=== PATIENT | female | born 1960 | race Caucasian/White ===

== ENCOUNTER 2020-02-10 08:43 | Outpatient (REF) | payer OTHER, SELFPAY ==
[2020-02-10 11:59] LABS: Blood Urea Nitrogen 12 mg/dL (9-16); Cholesterol 209 mg/dL; Estimated Glomerular Filt Rate > 60; HDL Cholesterol 52 mg/dL; LDL Cholesterol Calculated 142 mg/dl; Triglycerides 76 mg/dL
== END 2020-02-10 08:44 | disposition home or self-care (01) ==
LOC: HO.HMGCLDS 08:43
PROVIDERS: PCP Internal Medicine; Visit Provider Internal Medicine
DX: E78.2 Mixed hyperlipidemia (principal); Z82.49 Family history of ischemic heart disease and other diseases of the circulatory system
CPT/HCPCS: 80061; 82565; 84520

== ENCOUNTER 2020-05-31 08:14 | Outpatient (REF) | payer OTHER, SELFPAY ==
[2020-05-31 12:04] LABS: Alanine Aminotransferase 30 U/L (0-31); Albumin Level 4.2 g/dL (3.5-5.0); Alkaline Phosphatase 58 U/L (39-117); Anion Gap 13 (12-20); Aspartate Amino Transferase 24 U/L (5-31); Bilirubin Total 0.6 mg/dL (0.0-1.0); Blood Urea Nitrogen 20 mg/dL (9-16); Calcium 8.7 mg/dL (8.4-10.2); Carbon Dioxide 27 mmol/L (22-29); Chloride 106 mmol/L (96-108); Cholesterol 205 mg/dL; Estimated Glomerular Filt Rate > 60; Glucose Fasting 90 mg/dL (60-99); HDL Cholesterol 62 mg/dL; LDL Cholesterol Calculated 132 mg/dl; Potassium 4.6 mmol/L (3.3-5.1); Sodium 141 mmol/L (135-145); Total Protein 6.6 g/dL (6.5-8.0); Triglycerides 57 mg/dL
== END 2020-05-31 08:15 | disposition home or self-care (01) ==
LOC: HO.HMGCLDS 08:14
PROVIDERS: PCP Internal Medicine; Visit Provider Internal Medicine
DX: E78.5 Hyperlipidemia, unspecified (principal); I72.9 Aneurysm of unspecified site
CPT/HCPCS: 36415; 80053; 80061

== ENCOUNTER 2020-06-09 14:15 | Outpatient (REF) | payer OTHER, SELFPAY ==
--- NOTE | ~2020-06-09 | US_ITS ---
EXAMINATION: US THYROID CLINICAL INFORMATION: Autoimmune thyroiditis. COMPARISON: None TECHNIQUE: Linear transducer grayscale and color Doppler examination with attention to the region of the thyroid. FINDINGS: SIZE: Measurements of the thyroid lobes and nodules are given in sagittal, anteroposterior and transverse dimensions respectively. Right Thyroid Lobe: 5.2 x 2.5 x 2.1 cm, volume 14.3 mL. Parenchyma: The gland echotexture is heterogeneous. Thyroid vascularity is increased. Left Thyroid Lobe: 5.3 x 1.9 x 1.4 cm, volume 7.4 mL. Parenchyma: The gland echotexture is heterogeneous. Thyroid vascularity is increased. Isthmus: 0.5 cm in maximum AP dimension. Estimated total number of nodules greater than or equal to 1 cm: 4. Educational Psychologist nodules are described as follows: 1. Location: Right mid. Size: 2.7 x 1.4 x 2.2 cm, volume of 4.3 mL. Nodule characteristics: Composition: Solid (2). Echogenicity: Hyperechoic (1). Shape: Not taller than wide (0). Margins: Smooth (0). Echogenic Foci: None (0). ACR TI-RADS total points: 3 ACR TI-RADS category: 3 2. Location: Right inferior. Size: 1.2 x 1.0 x 1.0 cm, volume 0.6 mL. Nodule characteristics: Composition: Solid (2). Echogenicity: Hyperechoic (1). Shape: Not taller than wide (0). Margins: Ill-defined (0). Echogenic Foci: None (0). ACR TI-RADS total points: 3 ACR TI-RADS category: 3 3. Location: Left mid. Size: 1.7 x 1.1 x 1.4 cm, volume 1.4 mL. Nodule characteristics: Composition: Solid/almost completely solid (2). Echogenicity: Hyperechoic (1). Shape: Not taller than wide (0). Margins: Smooth (0). Echogenic Foci: None (0). ACR TI-RADS total points: 3 ACR TI-RADS category: 3 4. Location: Left mid/inferior. Size: 0.9 x 0.8 x 0.8 cm, volume 0.3 mL. Nodule characteristics: Composition: Solid (2). Echogenicity: Hyperechoic (1). Shape: Not taller than wide (0). Margins: Smooth (0). Echogenic Foci: Peripheral calcifications (2). ACR TI-RADS total points: 5 ACR TI-RADS category: 4 5. Location: Left inferior. Size: 1.1 x 0.7 x 1.2 cm, volume 0.5 mL. Nodule characteristics: Composition: Solid (2). Echogenicity: Cannot be determined (1). Shape: Not taller than wide (0). Margins: Ill-defined (0). Echogenic Foci: None (0). ACR TI-RADS total points: 3 ACR TI-RADS category: 3 NODES: No lymphadenopathy is seen in the tissue surrounding the thyroid gland. US/US thyroid IMPRESSION: Multinodular thyroid gland with a dominant 2.7 cm nodule in the right lobe. Multiple TR3 nodules are present, the largest of which measures 2.7 cm and was likely previously biopsied, per report. Continued follow-up ultrasound is advised per the recommendations below. A 0.9 cm TR4 nodule in the left lobe is not follow-up recommendation based on size. ACR TI-RADS RECOMMENDATION REFERENCE: * TR3 (3 points): FNA if more than or equal to 2.5 cm in maximum dimension, followup ultrasound in 1, 3 and 5 years if 1.5 to 2.4 cm in maximum dimension. * TR4 (4-6 points): FNA if more than or equal to 1.5 cm in maximum dimension, followup ultrasound in 1, 2, 3 and 5 years if 1 to 1.4 cm in maximum dimension. * TR3, TR4 or TR5 nodules that are below the size threshold for follow up receive no follow up.
== END 2020-06-09 14:16 | disposition home or self-care (01) ==
LOC: HO.US 14:15
PROVIDERS: Visit Provider Internal Medicine
DX: E06.3 Autoimmune thyroiditis (principal); I72.9 Aneurysm of unspecified site; E78.5 Hyperlipidemia, unspecified
CPT/HCPCS: 76536

== ENCOUNTER 2020-06-24 07:59 | Outpatient (REF) | payer OTHER, SELFPAY ==
--- NOTE | ~2020-06-24 | MM_ITS ---
EXAMINATION: BONE DENSITOMETRY CLINICAL INDICATION: Encounter for general adult medical examination. Screening for osteoporosis. COMPARISON: Baseline BD dated 03/11/2018. TECHNIQUE: Using a [employer] DXA System (software version: 13.1) manufactured by [employer], dual-energy x-ray absorptiometry was performed of the lumbar spine and left hip. The images are of good technical quality. Summary results are attached. FINDINGS: AP SPINE L1-L4: Current: BMD 0.970 g/cm2, Z-score -0.9, T-score -1.8, osteopenia, 3.5% increase from baseline (<5% change is not significant). Baseline: BMD 0.937 g/cm2. LEFT FEMUR, NECK: Current: BMD 0.821 g/cm2, Z-score -0.5, T-score -1.6, osteopenia. Baseline: BMD 0.834 g/cm2. LEFT FEMUR, TOTAL: Current: BMD 0.865 g/cm2, Z-score -0.4, T-score -1.1, osteopenia, 1.8% decrease from baseline (<5% change is not significant). Baseline: BMD 0.881 g/cm2. IDENTIFIED RISK FACTORS: Menopause. HISTORY OF FRACTURE: None listed. MEDICATIONS: Vitamin D. MM/XR DEXA axial skeleton IMPRESSION: 1. DIAGNOSIS: Osteopenia based on the lowest T-score value of -1.8 in the lumbar spine applying World Health Organization criteria. 2. 10-YEAR FRACTURE RISK PREDICTION, FRAX: Major osteoporotic fracture (clinical spine, forearm, hip or shoulder) 8.6%. Hip fracture 0.8%. 3. Treatment Recommendations: NOF guidelines recommend consideration for treatment in postmenopausal women and men age 50 and older presenting with the following: -A hip or vertebral (clinical or morphometric) fracture. -T-score less than or equal to -2.5 at the femoral neck or spine after appropriate evaluation to exclude secondary causes. -Low bone mass at the hip or spine and a 10-year fracture probability by FRAX of greater than or equal to 3% for hip fracture or greater than or equal to 20% for major osteoporotic fracture based on the [place] adapted WHO algorithm. 4. Other Recommendations: All treatment decisions require clinical judgment and consideration of individual patient factors, including patient preferences, comorbidities, previous drug use, risk factors not captured in the FRAX model (e.g. frailty, falls, vitamin D deficiency, increased bone turnover, interval significant decline in bone density) and possible under or overestimation of fracture risk by FRAX. Additional medical evaluation for secondary cause of low bone mineral density may be appropriate. FUTURE SCAN RECOMMENDATION: People with diagnosed cases of osteoporosis or at high risk for fracture should have regular bone mineral density tests. For patients eligible for Medicare, routine testing is allowed once every 2 years. The testing frequency can be increased to one year for patients who have rapidly progressing disease, those who are receiving or discontinuing medical therapy to restore bone mass, or have additional risk factors.
== END 2020-06-24 08:00 | disposition home or self-care (01) ==
LOC: HO.MAMMO 07:59
PROVIDERS: Visit Provider Internal Medicine
DX: Z13.820 Encounter for screening for osteoporosis (principal); M85.80 Other specified disorders of bone density and structure, unspecified site; Z78.0 Asymptomatic menopausal state; Z79.899 Other long term (current) drug therapy
CPT/HCPCS: 77080

== ENCOUNTER 2020-07-04 08:19 | Outpatient (REF) | payer OTHER, SELFPAY ==
[2020-07-04 12:19] LABS: Alanine Aminotransferase 20 U/L (0-31); Albumin Level 4.1 g/dL (3.5-5.0); Alkaline Phosphatase 50 U/L (39-117); Anion Gap 13 (12-20); Aspartate Amino Transferase 19 U/L (5-31); Bilirubin Total 0.4 mg/dL (0.0-1.0); Blood Urea Nitrogen 15 mg/dL (9-16); Calcium 8.7 mg/dL (8.4-10.2); Carbon Dioxide 25 mmol/L (22-29); Chloride 110 mmol/L (96-108); Cholesterol 169 mg/dL; Estimated Glomerular Filt Rate > 60; Glucose Fasting 94 mg/dL (60-99); HDL Cholesterol 66 mg/dL; LDL Cholesterol Calculated 94 mg/dl; Sodium 144 mmol/L (135-145); Total Protein 6.5 g/dL (6.5-8.0); Triglycerides 49 mg/dL
[2020-07-04 12:20] LABS: TSH reflex Free T4 0.95 uIU/mL (0.32-4.0); Vitamin D 25-OH Total 41.2 ng/mL (>30)
== END 2020-07-04 08:20 | disposition home or self-care (01) ==
LOC: HO.HMGCLDS 08:19
PROVIDERS: PCP Internal Medicine; Visit Provider Internal Medicine
DX: Z00.00 Encounter for general adult medical examination without abnormal findings (principal); E78.5 Hyperlipidemia, unspecified; E06.3 Autoimmune thyroiditis
CPT/HCPCS: 36415; 80053; 80061; 82306; 84443

== ENCOUNTER 2020-11-30 08:44 | Outpatient (REF) | payer OTHER, SELFPAY ==
[2020-11-30 09:44] LABS: Alanine Aminotransferase 30 U/L (0-31); Albumin Level 4.4 g/dL (3.5-5.0); Alkaline Phosphatase 51 U/L (39-117); Anion Gap 10 (12-20); Aspartate Amino Transferase 26 U/L (5-31); Bilirubin Total 0.7 mg/dL (0.0-1.0); Blood Urea Nitrogen 13 mg/dL (9-16); Calcium 9.2 mg/dL (8.4-10.2); Carbon Dioxide 26 mmol/L (22-29); Chloride 106 mmol/L (96-108); Cholesterol 191 mg/dL; Estimated Glomerular Filt Rate > 60; Glucose Fasting 101 mg/dL (60-99); HDL Cholesterol 69 mg/dL; LDL Cholesterol Calculated 112 mg/dl; Potassium 4.4 mmol/L (3.3-5.1); Sodium 138 mmol/L (135-145); Total Protein 6.7 g/dL (6.5-8.0); Triglycerides 51 mg/dL
== END 2020-11-30 08:45 | disposition home or self-care (01) ==
LOC: HO.LAB 08:44
PROVIDERS: PCP Internal Medicine; Visit Provider Internal Medicine
DX: Z00.00 Encounter for general adult medical examination without abnormal findings (principal); M85.80 Other specified disorders of bone density and structure, unspecified site; E78.5 Hyperlipidemia, unspecified
CPT/HCPCS: 36415; 80053; 80061

== ENCOUNTER 2021-06-14 08:26 | Outpatient (REF) | payer OTHER, SELFPAY ==
[2021-06-14 11:58] LABS: Hemoglobin 12.7 g/dl (12.0-16.0); Mean Corpuscular HGB Conc 32.6 g/dl (31.0-35.0); Mean Corpuscular Hemoglobin 31.3 pg (27.0-33.0); Mean Corpuscular Volume 96.1 fL (80.0-98.0); Mean Platelet Volume 9.3 fL (9.4-12.3); Platelet Count 243 X10*3/uL (160-400); Red Blood Count 4.06 X10*6/uL (4.20-5.50); Red Cell Distribution Width 12.2 % (11.0-16.0); White Blood Count 3.7 X10*3/uL (4.8-10.8)
[2021-06-14 12:21] LABS: TSH reflex Free T4 1.46 uIU/mL (0.32-4.0); Vitamin D 25-OH Total 50.7 ng/mL (>30)
[2021-06-14 12:23] LABS: Alanine Aminotransferase 98 U/L (0-31); Albumin Level 4.3 g/dL (3.5-5.0); Alkaline Phosphatase 83 U/L (39-117); Anion Gap 11 (12-20); Aspartate Amino Transferase 89 U/L (5-31); Bilirubin Total 0.4 mg/dL (0.0-1.0); Blood Urea Nitrogen 12 mg/dL (9-16); Calcium 9.2 mg/dL (8.4-10.2); Carbon Dioxide 26 mmol/L (22-29); Chloride 105 mmol/L (96-108); Cholesterol 183 mg/dL; Estimated Glomerular Filt Rate > 60; Glucose Fasting 103 mg/dL (60-99); HDL Cholesterol 56 mg/dL; LDL Cholesterol Calculated 114 mg/dl; Potassium 4.2 mmol/L (3.3-5.1); Sodium 138 mmol/L (135-145); Total Protein 6.8 g/dL (6.5-8.0); Triglycerides 69 mg/dL
== END 2021-06-14 08:27 | disposition home or self-care (01) ==
LOC: HO.HMGCLDS 08:26
PROVIDERS: Visit Provider Internal Medicine
DX: Z00.00 Encounter for general adult medical examination without abnormal findings (principal); E78.5 Hyperlipidemia, unspecified; M85.80 Other specified disorders of bone density and structure, unspecified site
CPT/HCPCS: 36415; 80053; 80061; 82306; 84443; 85027

== ENCOUNTER 2021-07-31 08:46 | Outpatient (REF) | payer OTHER, SELFPAY ==
--- NOTE | ~2021-07-31 | US_ITS ---
EXAMINATION: US THYROID CLINICAL INFORMATION: Nontoxic multinodular goiter. COMPARISON: Thyroid ultrasound 06/09/2020. TECHNIQUE: Linear transducer grayscale and color Doppler examination with attention to the region of the thyroid. FINDINGS: SIZE: Measurements of the thyroid lobes and nodules are given in sagittal, anteroposterior and transverse dimensions respectively. Right Thyroid Lobe: 6.1 x 2.5 x 2.2 cm, volume 17.5 mL. Previously 5.2 x 2.5 x 2.1 cm, volume 14.3 mL. Parenchyma: The gland echotexture is heterogeneous. Thyroid vascularity is increased. Left Thyroid Lobe: 5.5 x 2.1 x 1.7 cm, volume 10.3 mL. Previously 5.3 x 1.9 x 1.4 cm, volume 7.4 mL. Parenchyma: The gland echotexture is heterogeneous. Thyroid vascularity is increased. Isthmus: 0.5 cm in maximum AP dimension. Previously 0.5 cm. Estimated total number of nodules greater than or equal to 1 cm: 5. Dental Practitioner nodules are described as follows: 1. Location: Left upper pole. Size: 1.8 x 1.3 x 1.4 cm, volume 1.70 mL. Previously: 1.7 x 1.1 x 1.4 cm, volume 1.38 mL. Nodule characteristics: Composition: Solid (2). Echogenicity: Isoechoic (1). Shape: Not taller than wide (0). Margins: Extrathyroidal extension (3). Echogenic Foci: None (0). ACR TI-RADS total points: 6 Previous: 3 ACR TI-RADS category: 4 Previous: 3 Significant change in size (>/= 20% in 2 dimensions and minimal increase of 2 mm or 50% or greater increase in volume): Change in features: Change in ACR TI-RADS risk category: 2. Location: Left mid pole. Size: 1.0 x 0.9 x 1.0 cm, volume 0.45 mL. Previously: 0.9 x 0.8 x 0.8 cm, volume 0.28 mL. Nodule characteristics: Composition: Solid (2). Echogenicity: Isoechoic (1). Shape: Not taller than wide (0). Margins: Smooth (0). Echogenic Foci: Peripheral calcifications (2). ACR TI-RADS total points: 5 Previous: 5 ACR TI-RADS category: 4 Previous: 4 Significant change in size (>/= 20% in 2 dimensions and minimal increase of 2 mm or 50% or greater increase in volume): Change in features: Change in ACR TI-RADS risk category: 3. Location: Left lower pole. Size: 1.0 x 0.6 x 0.8 cm, volume 0.27 mL. Previously: 0.8 x 0.5 x 0.6 cm, volume 0.14 mL. Nodule characteristics: Composition: Mixed cystic and solid (1). Echogenicity: Cannot be determined (1). Shape: Not taller than wide (0). Margins: Smooth (0). Echogenic Foci: None (0). ACR TI-RADS total points: 2 ACR TI-RADS category: 2 4. Location: Right mid pole. Size: 2.7 x 1.5 x 2.4 cm, volume 4.95 mL. Previously: 2.7 x 1.4 x 2.2 cm, volume 4.33 mL. Nodule characteristics: Composition: Solid/almost completely solid (2). Echogenicity: Isoechoic (1). Shape: Not taller than wide (0). Margins: Smooth (0). Echogenic Foci: None (0). ACR TI-RADS total points: 3 Previous: 3 ACR TI-RADS category: 3 Previous: 3 Significant change in size (>/= 20% in 2 dimensions and minimal increase of 2 mm or 50% or greater increase in volume): Change in features: Change in ACR TI-RADS risk category: 5. Location: Right lower pole. Size: 1.1 x 1.2 x 0.8 cm, volume 0.5 mL. Previously: 1.2 x 1.0 x 1.0 cm, volume 0.6 mL. Nodule characteristics: Composition: Solid (2). Echogenicity: Cannot be determined (1). Shape: Taller than wide (3). Margins: Ill-defined (0). Echogenic Foci: None (0). ACR TI-RADS total points: 6 Previous: 3 ACR TI-RADS category: 4 Previous: 3 Significant change in size (>/= 20% in 2 dimensions and minimal increase of 2 mm or 50% or greater increase in volume): Change in features: Change in ACR TI-RADS risk category: The 1.1 x 0.7 x 1.2 cm nodule in the inferior left lobe on May 2020 exam is not definitely appreciated. NODES: No lymphadenopathy is seen in the tissue surrounding the thyroid gland. US/US thyroid IMPRESSION: Enlarged heterogeneous hypervascular thyroid gland. The 1 cm nodule in the inferior left lobe is not definitely appreciated. Otherwise bilateral thyroid nodules are stable. ACR TI-RADS RECOMMENDATION REFERENCE: Ultrasound-guided fine-needle aspiration, followup ultrasound, no further follow up. * TR1 (0 point) and TR 2 (2 points): No FNA or follow up * TR3 (3 points): FNA if more than or equal to 2.5 cm in maximum dimension, followup ultrasound in 1, 3 and 5 years if 1.5 to 2.4 cm in maximum dimension. * TR4 (4-6 points): FNA if more than or equal to 1.5 cm in maximum dimension, followup ultrasound in 1, 2, 3 and 5 years if 1 to 1.4 cm in maximum dimension. * TR5 (more than or equal to 7 points): FNA if more than or equal to 1 cm in maximum dimension, followup ultrasound every year for 5 years if 0.5 to 0.9 cm in maximum dimension. * TR3, TR4 or TR5 nodules that are below the size threshold for follow up receive no follow up.
== END 2021-07-31 08:47 | disposition home or self-care (01) ==
LOC: HO.US 08:46
PROVIDERS: PCP Internal Medicine; Visit Provider Internal Medicine
DX: E04.2 Nontoxic multinodular goiter (principal)
CPT/HCPCS: 76536

== ENCOUNTER 2021-08-23 07:48 | Outpatient (REF) | payer OTHER, SELFPAY ==
[2021-08-23 12:24] LABS: Alanine Aminotransferase 34 U/L (0-31); Albumin Level 4.5 g/dL (3.5-5.0); Alkaline Phosphatase 56 U/L (39-117); Aspartate Amino Transferase 28 U/L (5-31); Bilirubin Direct 0.2 mg/dL (0.0-0.5); Bilirubin Total 0.5 mg/dL (0.0-1.0)
== END 2021-08-23 07:49 | disposition home or self-care (01) ==
LOC: HO.HMGCLDS 07:48
PROVIDERS: Visit Provider Internal Medicine
DX: Z00.00 Encounter for general adult medical examination without abnormal findings (principal); R79.89 Other specified abnormal findings of blood chemistry; E78.5 Hyperlipidemia, unspecified
CPT/HCPCS: 36415; 80076

== ENCOUNTER 2022-06-20 08:37 | Outpatient (REF) | payer OTHER, SELFPAY ==
[2022-06-20 11:28] LABS: Appearance Urine Clear; Color Urine Yellow; Glucose Urine UA Negative (Negative); Leukocyte Esterase Urine Moderate (2+) (Negative); Nitrite Urine Negative (Negative); Specific Gravity - Urine <= 1.005 (1.005-1.025); UMIC TRIGGER UA YES; Urine Blood Negative (Negative); Urine Ketones Negative (Negative); Urine Protein Negative (Neg-Trace)
[2022-06-20 11:30] LABS: Hematocrit 38.3 % (37.0-47.0); Hemoglobin 12.4 g/dl (12.0-16.0); Mean Corpuscular HGB Conc 32.4 g/dl (31.0-35.0); Mean Corpuscular Volume 95.8 fL (80.0-98.0); Platelet Count 260 X10*3/uL (160-400); Red Cell Distribution Width 12.3 % (11.0-16.0); White Blood Count 5.1 X10*3/uL (4.8-10.8)
[2022-06-20 11:47] LABS: Bacteria Urine None Seen (None Seen); Hyaline Casts Urine 0-2 /LPF (0-2); RBC Urine 0-2 /HPF (0-2); Squamous Epithelial Cell Urine 0-2 /HPF (0-2); WBC Urine 0-5 /HPF (0-5)
[2022-06-20 12:15] LABS: Alanine Aminotransferase 35 U/L (0-31); Albumin Level 4.2 g/dL (3.5-5.0); Alkaline Phosphatase 52 U/L (39-117); Anion Gap 12 (12-20); Aspartate Amino Transferase 30 U/L (5-31); Bilirubin Total 0.6 mg/dL (0.0-1.0); Blood Urea Nitrogen 21 mg/dL (9-16); Calcium 9.1 mg/dL (8.4-10.2); Carbon Dioxide 25 mmol/L (22-29); Chloride 108 mmol/L (96-108); Cholesterol 192 mg/dL; Estimated Glomerular Filt Rate > 60; Glucose Fasting 94 mg/dL (60-99); HDL Cholesterol 60 mg/dL; LDL Cholesterol Calculated 121 mg/dl; Potassium 4.8 mmol/L (3.3-5.1); Sodium 140 mmol/L (135-145); Total Protein 6.6 g/dL (6.5-8.0); Triglycerides 56 mg/dL
[2022-06-20 12:17] LABS: TSH reflex Free T4 1.72 uIU/mL (0.32-4.0)
== END 2022-06-20 08:38 | disposition home or self-care (01) ==
LOC: HO.HMGCLDS 08:37
PROVIDERS: PCP Internal Medicine; Visit Provider Internal Medicine
DX: Z00.00 Encounter for general adult medical examination without abnormal findings (principal)
CPT/HCPCS: 36415; 80053; 80061; 81001; 84443; 85027

== ENCOUNTER 2023-06-26 08:03 | Outpatient (REF) | payer OTHER, SELFPAY ==
[2023-06-26 10:27] LABS: MANUAL DIFF FLAG NO
[2023-06-26 10:46] LABS: Basophils Absolute Auto 0.1 X10*3/uL (0.0-0.2); Basophils Percent Auto 1.3 % (0-2); Eosinophils Absolute Auto 0.3 X10*3/uL (0.0-0.4); Eosinophils Percent Auto 6.3 % (0-4); Hematocrit 35.1 % (37.0-47.0); Hemoglobin 11.5 g/dl (12.0-16.0); Lymphocytes Absolute Auto 1.4 X10*3/uL (1.2-4.9); Lymphocytes Percent Auto 35.4 % (20-40); Mean Corpuscular HGB Conc 32.8 g/dl (31.0-35.0); Mean Corpuscular Hemoglobin 31.3 pg (27.0-33.0); Mean Corpuscular Volume 95.4 fL (80.0-98.0); Mean Platelet Volume 9.3 fL (9.4-12.3); Monocytes Absolute Auto 0.4 X10*3/uL (0.1-1.2); Monocytes Percent Auto 10.1 % (2-11); Neutrophils Absolute Auto 1.9 x10*3/uL (2.0-8.3); Neutrophils Percent Auto 46.9 % (45-73); Platelet Count 228 X10*3/uL (160-400); Red Blood Count 3.68 X10*6/uL (4.20-5.50); Red Cell Distribution Width 13.4 % (11.0-16.0)
[2023-06-26 11:07] LABS: Alanine Aminotransferase 16 U/L (0-31); Albumin Level 4.1 g/dL (3.5-5.0); Alkaline Phosphatase 41 U/L (39-117); Anion Gap 13 (12-20); Aspartate Amino Transferase 20 U/L (5-31); Bilirubin Total 0.5 mg/dL (0.0-1.0); Blood Urea Nitrogen 20 mg/dL (9-16); Calcium 9.8 mg/dL (8.4-10.2); Carbon Dioxide 24 mmol/L (22-29); Chloride 105 mmol/L (96-108); Cholesterol 176 mg/dL (<200); Estimated Glomerular Filt Rate > 60; Glucose Fasting 97 mg/dL (60-99); HDL Cholesterol 67 mg/dL (>40); LDL Cholesterol Calculated 102 mg/dL (<100); Sodium 138 mmol/L (135-145); Total Protein 6.6 g/dL (6.5-8.0); Triglycerides 38 mg/dL (<150)
[2023-06-26 11:13] LABS: TSH reflex Free T4 1.81 uIU/mL (0.32-4.0); Vitamin D 25-OH Total 48.6 ng/mL (>30)
== END 2023-06-26 08:04 | disposition home or self-care (01) ==
LOC: HO.HMGCLDS 08:03
PROVIDERS: PCP Internal Medicine; Visit Provider Internal Medicine
DX: Z00.00 Encounter for general adult medical examination without abnormal findings (principal); E06.3 Autoimmune thyroiditis; E78.5 Hyperlipidemia, unspecified; I72.9 Aneurysm of unspecified site
CPT/HCPCS: 36415; 80053; 80061; 82306; 84443; 85025

== ENCOUNTER 2023-07-01 11:22 | Outpatient (AMB) | payer OTHER, SELFPAY ==
[2023-07-01 11:47] VITALS: BP 116/66; PULSE 77; O2SAT 98; BMI 29.3
--- NOTE | 2023-07-01 11:47 | MHC.PC.OV ---
Vital Signs 07/01/23 11:47 Height 5 ft 6.5 in Weight 184 lb BMI 29.3 BP 116/66 Blood Pressure Location Rt brachial Position Sitting Pulse 77 Pulse Source Pulse Oximeter Pulse Oximetry (%) 98 Oxygen Delivery Method Room Air Intake Visit Reasons: Annual PE Intake Note: Pt is here today for PE. Allergies No Known Allergies Allergy (Verified 07/01/23 11:50) Tobacco use date assessed: 07/01/23 Fall risk assessment: No Falls in past year Last assessed Fall Risk: 07/01/23 Dental Screening Dental Screen Date: 07/01/23 Did you have a dental visit in the last 12 months?: Yes Did you have a dental problem in the last 6 months where you did not have access to dental care?: No Was dental information given to patient?: Patient has dentist HPI Annual PE HPI Details Patient presents for physical PFSH Medical History Multinodular goiter Elevated LFTs Annual physical exam Aneurysm Hyperlipidemia Osteopenia Jr's thyroiditis Surgical History (Reviewed 07/01/23 @ 11:52 by Madeline Chance [facility] [place]) H/O colonoscopy No pertinent past surgical history Family History Father Cancer Mother HTN (hypertension) Afib Social History Housing: House Alcohol intake: current Alcohol intake frequency: a few times a month Patient Tobacco Use Status: Former Tobacco user Tobacco use type: Cigarette Years Smoked: 2 years e-Cigarette/Vaping Use: Never Used service: No Current occupational status: retired Cognitive needs: No Hearing needs: No Vision needs: Yes Questionnaire PHQ-9 Over the last 2 weeks, how often have you been bothered by any of the following problems? 1. Little interest or pleasure in doing things: not at all 2. Feeling down, depressed, or hopeless: not at all 3. Trouble falling or staying asleep, or sleeping too much: not at all 4. Feeling tired or having little energy: not at all 5. Poor appetite or overeating: not at all 6. Feeling bad about yourself - or that you are a failure or have let yourself or your family down: not at all 7. Trouble concentrating on things, such as reading the newspaper or watching television: not at all 8. Moving or speaking so slowly that other people could have noticed. Or the opposite - being so fidgety or restless that you have been moving around a lot more than usual: not at all 9. Thoughts that you would be better off or of hurting yourself in some way: not at all Total score: 0 Depression Screening Interpretation: Negative Depression Screening Done: Yes Source: Developed by Drs. Brock Christianson, Eliz Stephenson, Grayson Rosario and colleagues, with an educational ivon from [employer]. Thrive Questionnaire Date Thrive assessed: 07/01/23 I am a: Patient What is your living situation today?: I have a steady place to live Within the past 12 months, did the food you bought not last and you didn't have the money to get more?: Never true Within the past 12 months, did you worry whether your food would run out before you got money to buy more?: Never true Do you have trouble paying for medicines?: No Do you have trouble getting transportation to medical appointments?: No Do you have trouble paying your heating and electricity bill?: No Do you have trouble taking care of your child, family member or friend?: No Do you have trouble with day-to-day activities such as bathing, preparing meals, shopping, managing finances, etc.?: No Are you currently unemployed and looking for a job?: No Are you interested in more education?: No Please select the resources that you would like help with: None THRIVE Score: 0 AUDIT C Alcohol Use Questionnaire (AUDIT-C) 1. How often do you have a drink containing alcohol?: 2-3 times a week 2. How many drinks containing alcohol do you have on a typical day when you are drinking?: 1 or 2 3. How often do you have six or more drinks on one occasion?: Never Total Score: 3 EUGENE-7 AMB Questionnaire EUGENE-7 Date EUGENE - 7 assessed: 07/01/23 Feeling nervous, anxious, or on edge: 0 = Not at all Not being able to stop or control worryin = Not at all Worrying too much about different things: 0 = Not at all Trouble relaxin = Not at all Being so restless that it is hard to sit still: 0 = Not at all Becoming easily annoyed or irritable: 0 = Not at all Feeling afraid as if something awful might happen: 0 = Not at all Total EUGENE-7 score (0-4 normal; 5-9 mild; 10-14 moderate; 15-21 severe): 0 Source: Developed by Drs. Brock Christianson, Eliz Stephenson, Grayson Rosario and colleagues, with an educational ivon from [employer]. Review of Systems Const All systems reviewed & are unremarkable except as noted in HPI and below Eyes Reports no additional complaints ENT Reports no additional complaints Card Reports no additional complaints Resp Reports no additional complaints GI Reports no additional complaints Reports no additional complaints Physical exam (Primary Care) Vital Signs: Last Vital Signs Pulse 77 07/01/23 11:47 BP 116/66 07/01/23 11:47 Pulse Ox 98 07/01/23 11:47 Oxygen Delivery Method Room Air 07/01/23 11:47 BMI result Body Mass Index 29.3 Tobacco/Smoking Status: Tobacco use Status Tobacco use date assessed 07/01/23 07/01/23 11:54 Patient Tobacco Use Status Former Tobacco user 07/01/23 11:54 Tobacco use type Cigarette 07/01/23 11:54 e-Cigarette/Vaping Use Never Used 07/01/23 11:54 PHQ-9: PHQ-9 Score PHQ-9: Total score 0 07/01/23 11:54 Depression Screening Interpretation: Negative Thrive Assessment: Date of Thrive Assessment Date Thrive assessed 07/01/23 07/01/23 11:54 Const General: no acute distress HENMT Head: Yes normal to inspection Face and sinus: Yes normal facial exam Eyes General: appearance normal, both eyes and all related structures Neck Neck: Yes supple Resp Effort & Inspection: normal respiratory effort Auscultation: clear to auscultation bilaterally Cardio Rhythm: regular rhythm Heart sounds: S1 normal heart sound present and S2 normal heart sound present GI Inspection: Yes normal to inspection Palpation (GI): Soft to palpation Percussion: Yes normal to percussion Auscultation: normal bowel sounds Assessment and Plan Assessment & Plan (1) Anemia: Code(s): D64.9 - Anemia, unspecified Plan: Check iron status retic count and B12 level and the patient was given hemoccult. She is due for repeat colonoscopy next year. If she has iron deficiency anemia she will be referred to GI (2) Multinodular goiter: Comment: s/p biopsy, US 05/2020 Code(s): E04.2 - Nontoxic multinodular goiter Plan: Repeat thyroid ultrasound to follow-up on nodules (3) Aneurysm: Comment: multiple cerebral aneurysms :R ICA 1 stent 01/2020, L ICA 2 stents 10/2019, placed by Dr. Andino [facility] f/u , annual CTA at [facility], Code(s): I72.9 - Aneurysm of unspecified site Plan: Follow-up with [facility] (4) Jr's thyroiditis: Comment: nodules f/u by Dr. Gogo Schultz, in 02/2018,repeat US 2021 unchanged Code(s): E06.3 - Autoimmune thyroiditis (5) Osteopenia: Comment: dexa 2014, 2018, 2020 unchanged Code(s): M85.80 - Other specified disorders of bone density and structure, unspecified site Plan: Check DEXA continue B12 and weight-bearing exercises (6) Hyperlipidemia: Code(s): E78.5 - Hyperlipidemia, unspecified Plan: Continue pravastatin (7) Annual physical exam: Code(s): Z00.00 - Encounter for general adult medical examination without abnormal findings Plan: Well-balanced diet regular physical activity discussed with the patient she is up-to-date with mammogram Orders: Orders Vitamin B12 and Folate Today D64.9 - Anemia, unspecified, E04.2 - Nontoxic multinodular goiter, I72.9 - Aneurysm of unspecified site Lipid Panel 1 Year D64.9 - Anemia, unspecified, E06.3 - Autoimmune thyroiditis, E78.5 - Hyperlipidemia, unspecified, M85.80 - Other specified disorders of bone density and structure, unspecified site, Z00.00 - Encounter for general adult medical examination without abnormal findings TSH reflex Free T4 1 Year D64.9 - Anemia, unspecified, E06.3 - Autoimmune thyroiditis, E78.5 - Hyperlipidemia, unspecified, M85.80 - Other specified disorders of bone density and structure, unspecified site, Z00.00 - Encounter for general adult medical examination without abnormal findings UA w Microscopic 1 Year D64.9 - Anemia, unspecified, E06.3 - Autoimmune thyroiditis, E78.5 - Hyperlipidemia, unspecified, M85.80 - Other specified disorders of bone density and structure, unspecified site, Z00.00 - Encounter for general adult medical examination without abnormal findings Vitamin D 25-OH Total 1 Year D64.9 - Anemia, unspecified, E06.3 - Autoimmune thyroiditis, E78.5 - Hyperlipidemia, unspecified, M85.80 - Other specified disorders of bone density and structure, unspecified site, Z00.00 - Encounter for general adult medical examination without abnormal findings AMB Fecal Immunochemical Test Today Z12.11 - Encounter for screening for malignant neoplasm of colon, Z12.12 - Encounter for screening for malignant neoplasm of rectum IRON PROFILE Today D64.9 - Anemia, unspecified, E04.2 - Nontoxic multinodular goiter, I72.9 - Aneurysm of unspecified site Reticulocyte Count Today D64.9 - Anemia, unspecified, E04.2 - Nontoxic multinodular goiter, I72.9 - Aneurysm of unspecified site US thyroid Today D64.9 - Anemia, unspecified, E04.2 - Nontoxic multinodular goiter, I72.9 - Aneurysm of unspecified site XR DEXA axial skeleton Today D64.9 - Anemia, unspecified, E04.2 - Nontoxic multinodular goiter, I72.9 - Aneurysm of unspecified site Complete Blood Count Auto Diff 1 Year D64.9 - Anemia, unspecified, E06.3 - Autoimmune thyroiditis, E78.5 - Hyperlipidemia, unspecified, M85.80 - Other specified disorders of bone density and structure, unspecified site, Z00.00 - Encounter for general adult medical examination without abnormal findings Comprehensive [place]. Panel Fast 1 Year D64.9 - Anemia, unspecified, E06.3 - Autoimmune thyroiditis, E78.5 - Hyperlipidemia, unspecified, M85.80 - Other specified disorders of bone density and structure, unspecified site, Z00.00 - Encounter for general adult medical examination without abnormal findings Coding Level of Care Code Est Pt Prev Care >65y(51469) Diagnoses Anemia D64.9 Multinodular goiter E04.2 Aneurysm I72.9 Jr's thyroiditis E06.3 Osteopenia M85.80 Hyperlipidemia E78.5 Annual physical exam Z00.00
== END 2023-07-01 12:46 | disposition home or self-care (01) ==
PROVIDERS: Visit Provider Internal Medicine
DX: D64.9 Anemia, unspecified (principal); E04.2 Nontoxic multinodular goiter; I72.9 Aneurysm of unspecified site; E06.3 Autoimmune thyroiditis; M85.80 Other specified disorders of bone density and structure, unspecified site; E78.5 Hyperlipidemia, unspecified; Z00.00 Encounter for general adult medical examination without abnormal findings
CPT/HCPCS: 99397

== ENCOUNTER 2023-07-01 12:33 | Outpatient (REF) | payer OTHER, SELFPAY ==
[2023-07-01 16:15] LABS: Immature Retic Fraction 13.4 % (3.0-15.9); Retic HGB Equivalent 35.5 pg (30.0-35.0); Reticulocyte Percent 1.6 % (0.5-1.8); Reticulocytes Absolute 0.065 X10*6/uL (0.026-0.095)
[2023-07-01 16:45] LABS: Iron 110 mcg/dL (30-160); Percent Iron Saturation 41 % (15-50); Total Iron Binding Capacity 271 mcg/dL (228-428); Unsaturated Iron Binding 161 ug/dL
[2023-07-01 17:18] LABS: Folate 15.9 ng/mL (> or = 4.0); Vitamin B12 448 pg/mL (200-900)
== END 2023-07-01 12:34 | disposition home or self-care (01) ==
LOC: HO.HMGCLDS 12:33
PROVIDERS: PCP Internal Medicine; Visit Provider Internal Medicine
DX: D64.9 Anemia, unspecified (principal); E04.2 Nontoxic multinodular goiter; I72.9 Aneurysm of unspecified site
CPT/HCPCS: 36415; 82607; 82746; 83540; 85045

== ENCOUNTER 2023-07-03 08:00 | Outpatient (REF) | payer OTHER, SELFPAY ==
[2023-07-05 08:19] LABS: FIT Int Ctl YES; FIT1 NEGATIVE (NEGATIVE); FIT2 NEGATIVE (NEGATIVE)
== END 2023-07-03 08:01 | disposition home or self-care (01) ==
LOC: HO.LNP 08:00
PROVIDERS: Visit Provider Internal Medicine
DX: D64.9 Anemia, unspecified (principal)
CPT/HCPCS: 82274

== ENCOUNTER 2023-07-10 12:05 | Outpatient (REF) | payer OTHER, SELFPAY ==
--- NOTE | ~2023-07-10 | US_ITS ---
EXAMINATION: US THYROID CLINICAL INFORMATION: Nontoxic multinodular goiter. History of prior biopsy May 2020, benign, at outside facility, per patient COMPARISON: Ultrasound soft tissue head/neck thyroid dated 07/31/2021 and 06/09/2020. TECHNIQUE: Linear transducer grayscale and color Doppler examination with attention to the region of the thyroid. FINDINGS: SIZE: Measurements of the thyroid lobes and nodules are given in sagittal, anteroposterior and transverse dimensions respectively. Right Thyroid Lobe: 5.3 x 2.4 x 1.7 cm, volume 15.4 mL. Previously 6.1 x 2.5 x 2.2 cm, volume 17.5 mL. Parenchyma: The gland echotexture is heterogeneous. Thyroid vascularity is increased. Left Thyroid Lobe: 5.3 x 1.7 x 1.7 cm, volume 8.4 mL. Previously 5.5 x 2.1 x 1.7 cm, volume 10.3 mL. Parenchyma: The gland echotexture is heterogeneous. Thyroid vascularity is increased. Isthmus: 0.5 cm in maximum AP dimension. Previously 0.5 cm. Estimated total number of nodules greater than or equal to 1 cm: 3. Freight Unloader nodules are described as follows: 1. Location: Right mid. Size: 2.8 x 1.7 x 2.4 cm, volume 5.8 mL. Previously: 2.7 x 1.5 x 2.4 cm, volume 4.95 mL. Nodule characteristics: Composition: Solid/almost completely solid (2). Echogenicity: Isoechoic (1). Shape: Not taller than wide (0). Margins: Smooth (0). Echogenic Foci: None (0). ACR TI-RADS total points: 3 Previous: 3 ACR TI-RADS category: 3 Previous: 3 Significant change in size (>/= 20% in 2 dimensions and minimal increase of 2 mm or 50% or greater increase in volume): No Change in features: No Change in ACR TI-RADS risk category: No 2. Location: Right inferior. Size: 1.4 x 1.0 x 1.1 cm, volume 0.8 mL. Previously: 1.1 x 1.2 x 0.8 cm, volume 0.5 mL. Nodule characteristics: Composition: Solid/almost completely solid (2). Echogenicity: Isoechoic (1). Shape: Not taller than wide (0). Margins: Ill-defined (0). Echogenic Foci: None (0). ACR TI-RADS total points: 3 Previous: 6 ACR TI-RADS category: 3 Previous: 4 Significant change in size (>/= 20% in 2 dimensions and minimal increase of 2 mm or 50% or greater increase in volume): Yes Change in features: Larger cystic component Change in ACR TI-RADS risk category: Yes 3. Location: Left superior. Size: 1.8 x 1.2 x 1.6 cm, volume 1.7 mL. Previously: 1.8 x 1.3 x 1.4 cm, volume 1.7 mL. Nodule characteristics: Composition: Solid/almost completely solid (2). Echogenicity: Isoechoic (1). Shape: Not taller than wide (0). Margins: Smooth (0). Echogenic Foci: None (0). ACR TI-RADS total points: 3 Previous: 6 ACR TI-RADS category: 3 Previous: 4 Significant change in size (>/= 20% in 2 dimensions and minimal increase of 2 mm or 50% or greater increase in volume): No Change in features: No Change in ACR TI-RADS risk category: Yes 4. Location: Left mid. Size: 0.9 x 0.7 x 0.8 cm, volume 0.3 mL. Previously: 1.0 x 0.9 x 1.0 cm, volume 0.45 mL. Nodule characteristics: Composition: Solid/almost completely solid (2). Echogenicity: Isoechoic (1). Shape: Not taller than wide (0). Margins: Smooth (0). Echogenic Foci: Peripheral calcifications (2). ACR TI-RADS total points: 5 Previous: 5 ACR TI-RADS category: 4 Previous: 4 Significant change in size (>/= 20% in 2 dimensions and minimal increase of 2 mm or 50% or greater increase in volume): No Change in features: More prominent calcified rim Change in ACR TI-RADS risk category: No 5. Location: Left inferior. Size: 0.9 x 0.7 x 0.7 cm, volume 0.2 mL. Previously: 1.0 x 0.6 x 0.8 cm, volume 0.27 mL. Nodule characteristics: Composition: Mixed cystic and solid (1). Echogenicity: Isoechoic (1). Shape: Not taller than wide (0). Margins: Smooth (0). Echogenic Foci: None (0). ACR TI-RADS total points: 2 Previous: 2 ACR TI-RADS category: 2 Previous: 2 Significant change in size (>/= 20% in 2 dimensions and minimal increase of 2 mm or 50% or greater increase in volume): No Change in features: Now with cystic component Change in ACR TI-RADS risk category: No NODES: No lymphadenopathy is seen in the tissue surrounding the thyroid gland. US/US thyroid IMPRESSION: Multinodular goiter. 2.8 cm nodule in the mid right lobe, TR 3, fulfills the criteria for FNA. Biopsy should be considered, if not already performed. ACR TI-RADS RECOMMENDATION REFERENCE: Ultrasound-guided fine-needle aspiration, follow up ultrasound, no further followup. * TR1 (0 point) and TR2 (2 points): No FNA or followup * TR3 (3 points): FNA if more than or equal to 2.5 cm in maximum dimension, follow up ultrasound in 1, 3 and 5 years if 1.5 to 2.4 cm in maximum dimension. * TR4 (4-6 points): FNA if more than or equal to 1.5 cm in maximum dimension, follow up ultrasound in 1, 2, 3 and 5 years if 1 to 1.4 cm in maximum dimension. * TR5 (more than or equal to 7 points): FNA if more than or equal to 1 cm in maximum dimension, follow up ultrasound every year for 5 years if 0.5 to 0.9 cm in maximum dimension. * TR3, TR4 or TR5 nodules that are below the size threshold for follow up receive no followup.
== END 2023-07-10 12:06 | disposition home or self-care (01) ==
LOC: HO.US 12:05
PROVIDERS: PCP Internal Medicine; Visit Provider Internal Medicine
DX: E04.2 Nontoxic multinodular goiter (principal); D64.9 Anemia, unspecified; I72.9 Aneurysm of unspecified site
CPT/HCPCS: 76536

== ENCOUNTER 2023-08-16 12:38 | Outpatient (REF) | payer OTHER, SELFPAY ==
--- NOTE | ~2023-08-16 | MM_ITS ---
EXAMINATION: BONE DENSITOMETRY CLINICAL INDICATION: Anemia, unspecified. COMPARISON: Previous BD dated 06/24/2020 and baseline BD dated 03/11/2018. TECHNIQUE: Using a [employer] DXA System (software version: 13.1) manufactured by [employer], dual-energy x-ray absorptiometry was performed of the lumbar spine and left hip. The images are of good technical quality. Summary results are attached. FINDINGS: LEFT FEMUR, NECK: Current: BMD 0.672 g/cm2, Z-score -1.5, T-score -2.6, osteoporosis. Prior: BMD 0.821 g/cm2. Baseline: BMD 0.834 g/cm2. LEFT FEMUR, TOTAL: Current: BMD 0.701 g/cm2, Z-score -1.6, T-score -2.4, osteopenia, 19.0% decrease from previous, 20.4% decrease from baseline (<5% change is not significant). Prior: BMD 0.865 g/cm2. Baseline: BMD 0.881 g/cm2. AP SPINE L1-L3 (excluding L4): The data of L1-L4 has been changed to exclude the L4 vertebral body, because degenerative sclerosis at this level may cause overestimation of lumbar spine density. Current: BMD 0.859 g/cm2, Z-score -1.5, T-score -2.6, osteoporosis, 11.0% decrease from previous, 6.8% decrease from baseline (<5% change is not significant). Prior: BMD 0.965 g/cm2. Baseline: BMD 0.922 g/cm2. IDENTIFIED RISK FACTORS: Menopause. HISTORY OF FRACTURE: None listed. MEDICATIONS: Vitamin D. MM/XR DEXA axial skeleton IMPRESSION: 1. DIAGNOSIS: Osteoporosis based on the lowest T-score value of -2.6 in the lumbar spine and femur neck applying World Health Organization criteria. 2. 10-YEAR FRACTURE RISK PREDICTION, FRAX: According to the guidelines, FRAX calculation should only be performed on patients in the osteopenia bone density category. Therefore, FRAX was not performed on this patient. 3. Treatment Recommendations: NOF guidelines recommend consideration for treatment in postmenopausal women and men age 50 and older presenting with the following: -A hip or vertebral (clinical or morphometric) fracture. -T-score less than or equal to -2.5 at the femoral neck or spine after appropriate evaluation to exclude secondary causes. -Low bone mass at the hip or spine and a 10-year fracture probability by FRAX of greater than or equal to 3% for hip fracture or greater than or equal to 20% for major osteoporotic fracture based on the [place] adapted WHO algorithm. 4. Other Recommendations: All treatment decisions require clinical judgment and consideration of individual patient factors, including patient preferences, comorbidities, previous drug use, risk factors not captured in the FRAX model (e.g. frailty, falls, vitamin D deficiency, increased bone turnover, interval significant decline in bone density) and possible under or overestimation of fracture risk by FRAX. Additional medical evaluation for secondary cause of low bone mineral density may be appropriate. FUTURE SCAN RECOMMENDATION: People with diagnosed cases of osteoporosis or at high risk for fracture should have regular bone mineral density tests. For patients eligible for Medicare, routine testing is allowed once every 2 years. The testing frequency can be increased to one year for patients who have rapidly progressing disease, those who are receiving or discontinuing medical therapy to restore bone mass, or have additional risk factors.
== END 2023-08-16 12:39 | disposition home or self-care (01) ==
LOC: HO.MAMMO 12:38
PROVIDERS: PCP Internal Medicine; Visit Provider Internal Medicine
DX: Z13.820 Encounter for screening for osteoporosis (principal); M85.88 Other specified disorders of bone density and structure, other site
CPT/HCPCS: 77080

== ENCOUNTER 2023-09-11 13:21 | Outpatient (AMB) | payer OTHER, SELFPAY ==
--- NOTE | 2023-09-11 13:41 | MHC.PC.OV ---
Vital Signs 09/11/23 13:44 Height 5 ft 6.5 in Weight 184 lb BMI 29.3 BP 126/76 Blood Pressure Location Lt brachial Position Sitting Pulse 82 Pulse Source Pulse Oximeter Pulse Oximetry (%) 98 Oxygen Delivery Method Room Air Intake Visit Reasons: Discuss osteoporosis treatment Intake Note: Pt is here today for a follow up visit. Allergies No Known Allergies Allergy (Verified 09/11/23 13:44) Medication List - Last Reconciled 09/11/23 by Fatmata Stiles MD alendronate (Fosamax) 70 mg PO QWEEK aspirin 81 mg PO DAILY nyxtnhf-vxfopw-cqjtdf-glycosam 300 mg calcium- 1,700 mg/scoop sc PO cholecalciferol (vitamin D3) 50 mcg PO DAILY cranberry extract 200 mg PO DAILY multivit with min-folic acid 200 mcg (One-A-Day Vitacraves Immunity) tabs PO pravastatin 40 mg PO DAILY Tobacco use date assessed: 09/11/23 Dental Screening Dental Screen Date: 07/01/23 HPI Discuss osteoporosis treatment HPI Details Patient presents to discuss DEXA scan results. T-score was-2.6 in femoral neck and lumbar spine. [facility] Medical History Multinodular goiter Elevated LFTs Annual physical exam Aneurysm Hyperlipidemia Osteopenia Jr's thyroiditis Surgical History H/O colonoscopy No pertinent past surgical history Family History Father Cancer Mother HTN (hypertension) Afib Social History Housing: House Alcohol intake: current Alcohol intake frequency: a few times a month Patient Tobacco Use Status: Former Tobacco user Tobacco use type: Cigarette Years Smoked: 2 years e-Cigarette/Vaping Use: Never Used service: No Current occupational status: retired Cognitive needs: No Hearing needs: No Vision needs: Yes Questionnaire PHQ-9 Over the last 2 weeks, how often have you been bothered by any of the following problems? 1. Little interest or pleasure in doing things: not at all 2. Feeling down, depressed, or hopeless: not at all 3. Trouble falling or staying asleep, or sleeping too much: not at all 4. Feeling tired or having little energy: not at all 5. Poor appetite or overeating: not at all 6. Feeling bad about yourself - or that you are a failure or have let yourself or your family down: not at all 7. Trouble concentrating on things, such as reading the newspaper or watching television: not at all 8. Moving or speaking so slowly that other people could have noticed. Or the opposite - being so fidgety or restless that you have been moving around a lot more than usual: not at all 9. Thoughts that you would be better off or of hurting yourself in some way: not at all Total score: 0 Depression Screening Interpretation: Negative Depression Screening Done: Yes Source: Developed by Drs. Brock Christianson, Eliz Stephenson, Grayson Rosario and colleagues, with an educational ivon from [employer]. Thrive Questionnaire Date Thrive assessed: 09/04/23 I am a: Patient What is your living situation today?: I have a steady place to live Within the past 12 months, did the food you bought not last and you didn't have the money to get more?: I choose not to answer this question Within the past 12 months, did you worry whether your food would run out before you got money to buy more?: Never true Do you have trouble paying for medicines?: No Do you have trouble getting transportation to medical appointments?: No Do you have trouble paying your heating and electricity bill?: No Do you have trouble taking care of your child, family member or friend?: No Do you have trouble with day-to-day activities such as bathing, preparing meals, shopping, managing finances, etc.?: No Are you currently unemployed and looking for a job?: No Are you interested in more education?: No Please select the resources that you would like help with: Housing/[facility] Currently or been in a relationship where the following occur: No concerns reported THRIVE Score: 0 AUDIT C Alcohol Use Questionnaire (AUDIT-C) 1. How often do you have a drink containing alcohol?: 2-3 times a week 2. How many drinks containing alcohol do you have on a typical day when you are drinking?: 1 or 2 3. How often do you have six or more drinks on one occasion?: Never Total Score: 3 EUGENE-7 AMB Questionnaire EUGENE-7 Date EUGENE - 7 assessed: 09/11/23 Feeling nervous, anxious, or on edge: 0 = Not at all Not being able to stop or control worryin = Not at all Worrying too much about different things: 0 = Not at all Trouble relaxin = Not at all Being so restless that it is hard to sit still: 0 = Not at all Becoming easily annoyed or irritable: 0 = Not at all Feeling afraid as if something awful might happen: 0 = Not at all Total EUGENE-7 score (0-4 normal; 5-9 mild; 10-14 moderate; 15-21 severe): 0 Source: Developed by Drs. Brock Christianson, Eliz Stephenson, Grayson Rosario and colleagues, with an educational ivon from [employer]. Review of Systems Const All systems reviewed & are unremarkable except as noted in HPI and below ENT Reports no additional complaints Card Reports no additional complaints Resp Reports no additional complaints Reports no additional complaints Physical exam (Primary Care) Vital Signs: Last Vital Signs Pulse 82 09/11/23 13:44 BP 126/76 09/11/23 13:44 Pulse Ox 98 09/11/23 13:44 Oxygen Delivery Method Room Air 09/11/23 13:44 BMI result Body Mass Index 29.3 Tobacco/Smoking Status: Tobacco use Status Tobacco use date assessed 09/11/23 09/11/23 13:58 Patient Tobacco Use Status Former Tobacco user 09/11/23 13:43 Tobacco use type Cigarette 09/11/23 13:43 e-Cigarette/Vaping Use Never Used 09/11/23 13:43 PHQ-9: PHQ-9 Score PHQ-9: Total score 0 09/11/23 13:58 Depression Screening Interpretation: Negative Thrive Assessment: Date of Thrive Assessment Date Thrive assessed 09/04/23 09/11/23 13:43 Currently or been in a relationship where the following occur: No concerns reported Const General: no acute distress HENMT Head: Yes normal to inspection Ears: hearing grossly normal bilaterally Eyes General: appearance normal, both eyes and all related structures Resp Effort & Inspection: normal respiratory effort Auscultation: clear to auscultation bilaterally Cardio Rhythm: regular rhythm Heart sounds: S1 normal heart sound present and S2 normal heart sound present Assessment and Plan Assessment & Plan (1) Osteoporosis: Comment: DEXA 09/10, T-score -2.6 femoral neck and L spine, started Fosamax , Code(s): M81.0 - Age-related osteoporosis without current pathological fracture Plan: Start. Fosamax. Side effects discussed with the patient continue vitamin-D weight-bearing exercises, recheck DEXA in 2 years Medications: New alendronate (Fosamax) 70 mg PO QWEEK 14 tabs 2RF Coding Level of Care Code Est Pt Level 3 (02068) Diagnoses Osteoporosis M81.0
[2023-09-11 13:44] VITALS: BP 126/76; PULSE 82; O2SAT 98; BMI 29.3
== END 2023-09-11 14:46 | disposition home or self-care (01) ==
PROVIDERS: PCP Internal Medicine; Visit Provider Internal Medicine
DX: M81.0 Age-related osteoporosis without current pathological fracture (principal)
CPT/HCPCS: 99213

== ENCOUNTER 2024-05-20 15:11 | Outpatient (REF) | payer OTHER, SELFPAY ==
--- NOTE | ~2024-05-20 | US_ITS ---
EXAMINATION: US THYROID HISTORY: E06.3 - Autoimmune thyroiditis TECHNIQUE: Real-time grayscale ultrasound imaging was performed and images were reviewed. COMPARISON: Comparison is made with the prior examination dated 07/10/2023. FINDINGS: SIZE: The right thyroid lobe measures 5.1 x 2.9 x 2.4 cm. The left thyroid lobe measures 5.7 x 2.5 x 1.9 cm. The isthmus measures 3 mm. FLOW: Flow to the gland is increased. ECHOGENICITY: The echotexture of the gland is heterogeneous. NODULES: Multiple bilateral thyroid nodules are identified as described below: Nodule #: 1 Location: Midportion of the right thyroid lobe measuring 2.8 x 1.6 x 2.5 cm (previously 2.8 x 1.7 x 2.4 cm). Shape: Wider than tall (0 points) Margins: Smooth (0 points) Echotexture: Isoechoic (1 point) Composition: Mostly solid (2 points) Calcifications: None (0 points) Total points: 3 TIRADS: TR3: Mildly suspicious. Nodule #: 2 Location: Lower pole of the right thyroid lobe measuring 1.1 x 1.0 x 1.1 cm (previously 1.4 x 1.0 x 1.1 cm). Shape: Round (0 points) Margins: Smooth (0 points) Echotexture: Hypoechoic (2 points) Composition: Mostly solid (2 points) Calcifications: None (0 points) Total points: 4 TIRADS: TR4: Moderately suspicious. Nodule #: 3 Location: Upper pole of the left thyroid lobe measuring 1.7 x 1.4 x 1.6 cm (previously 1.8 x 1.2 1.6 cm). Shape: Wider than tall (0 points) Margins: Smooth (0 points) Echotexture: Indeterminate (1 point) Composition: Mostly solid (2 points) Calcifications: None (0 points) Total points: 3 TIRADS: TR3: Mildly suspicious. Nodule #: 4 Location: Midportion of the left thyroid lobe measuring 0.9 x 0.8 x 0.9 cm (previously 0.9 x 0.7 x 0.8 cm). Shape: Round (0 points) Margins: Smooth (0 points) Echotexture: Hypoechoic (2 points) Composition: Mostly solid (2 points) Calcifications: Rim calcification (2 points) Total points: 6 TIRADS: TR4: Moderately suspicious. Nodule #: 5 Location: Lower pole of the left thyroid lobe measuring 1.0 x 0.8 x 1.0 cm (previously 0.9 x 0.7 x 0.7 cm). Shape: Wider than tall (0 points) Margins: Smooth (0 points) Echotexture: Hypoechoic (2 points) Composition: Mostly solid (2 points) Calcifications: None (0 points) Total points: 4 TIRADS: TR4: Moderately suspicious. US/US thyroid IMPRESSION: Multinodular thyroid gland without change. As noted on the prior study, according to TI-RADS guidelines, ultrasound-guided fine-needle aspiration of the dominant nodule in the midportion of the right thyroid lobe (nodule #1) is recommended if this has not already been performed. ACR TI-RADS Guidelines TR1 (0 points): Benign, No follow-up or biopsy required TR2 (2 points): Not Suspicious, No biopsy or follow up indicated TR3 (3 points): Mildly Suspicious, FNA if >= 2.5 cm, Follow if >= 1.5 cm TR4 (4-6 points): Moderately Suspicious, FNA if >= 1.5 cm, Follow if >= 1.0 cm TR5 (>=7 points): Highly Suspicious, FNA if >= 1.0 cm, Follow if >= 0.5 cm Electronically signed by: Brock Lawrence MD 05/21/2024 07:39 AM EDT
--- OUTSIDE RECORDS SUMMARY | 2024-05-20 17:37 | XMS_ITS | Encounter Summary ---
Author Organization [facility] Address [address] [place] [address] Care Team Providers Care Corrugator Operator Helper Name Role Phone Fatmata Stiles Primary Care Provider [phone] Encounter Details Date Type Department Care Team (Late st Contact Info) Description 07/12/2020 [employer] Message [facility] Neuro Interventional Radiology [address] [place] [id number] Mychart, Generic Provider [facility] [place] [phone] YEMI instructions Social History Tobacco Use Types Packs/Day Years Used Date Smoking Tobacco: Former Cigarettes 0.5 18 1 982 - 2000 Smokeless Tobacco: Never Alcohol Use Standard Drinks/Week Comments Yes 4 (1 standard drink = 0.6 oz pur e alcohol) Comments No Sex and Gender Information Value Date Recorded Sex Assigned at Female 01/16/2022 2:56 PM EST Legal Sex Female 11:58 AM EDT Gender Identity Female 01/16/2022 2:56 PM EST Sexual Orientation Choose not to disclose 2021 2:56 PM EST documented as of this encounter Plan of Treatment Not on file documented as of this encounter Visit Diagnoses Not on filedocumented in this encounter Care Teams Corrugator Operator Helper Relationship Specialty Start Date End Date Fatmata Stiles [address] [place] [address] PCP - General Internal Medicine 09/18/19 documented as of this encounter
--- OUTSIDE RECORDS SUMMARY | 2024-05-20 17:37 | XMS_ITS | Clinical Summary ---
Author Organization [facility] Address [address] [place] [address] Care Team Providers Care Charge Machine Operator Name Role Phone Fatmata Stiles Primary Care Provider [phone] Allergies No known active allergies Medications cranberry fruit extract/vit C (CRANBERRY EXTRACT-VITAMIN C ORAL) Take 4,200 mg by mouth every morning. Active cholecalciferol (VITAMIN D3) 2,000 unit tablet Take 1 tablet by mouth every morning. Active DIETARY SUPPLEMENT ORAL IMMUNITY PLUS 3 capsules by mouth every morning. Active Bacillus coagulans (Digestive Advantage Prob Gummy) 250 million cell tablet,chewable PROBIOTIC GUMMY BY MOUTH EVERY MORNING. Active acetaminophen (TYLENOL) 325 mg tablet Take 650 mg by mouth every 6 hours as needed for pain. Active calcium carbonate (TUMS) 200 mg calcium (500 mg) chewable tablet Chew and swallow 1 tablet by mouth daily as needed. Active aspirin 81 mg EC tablet Take 1 tablet (81 mg total) by mouth daily. 30 tablet 8 0 Active pravastatin (PRAVACHOL) 40 mg tablet Take 40 mg by mouth daily. 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 Cataracts, bilateral 01/21/2020 Brain aneurysm 11/17/2019 Encounters Date Type Department Care Team Description 04/22/2024 10:30 AM EST - 04/22/2024 11:59 PM [facility] Hospital Encounter [facility] Interventional Radiology [address] [place] [address] [id number] Piotr Andino MD Brain aneurysm Discharge Disposition: Home or Self Care (01) 04/17/2024 Telephone [facility] Interventional Radiology [address] [place] [address] Lorna Zelaya PCA 04/16/2024 Telephone [facility] Neuro Interventional Radiology [address] [place] [address] Fawn Wilkins I 04/16/2024 Results Follow-Up [facility] Neuro Interventional Radiology [address] [place] [address] Janusz Reilly PA 04/11/2024 8:26 AM EST - 04/11/2024 11:59 PM EST Hospital Encounter [facility] CT Scan [address] [place] [address] Brain aneurysm Discharge Disposition: Home or Self Care () 02/21/2024 Orders Only [facility] Neuro Interventional Radiology [address] [place] [address] Arabella Pressley, VILMA Brain aneurysm (Primary Dx) from Last 3 Months Family History Medical History Relation Name Comments Throat cancer Father Arthritis Mother Asthma Mother Atrial fibrillation Mother Hypertension Mother Lymphoma Mother Stroke Sister 1 SAH, ruptured a neurysm Solid Tumor Sister 2 glioblastoma Relation Name Status Comments Brother victim of homic esa 2020 Father Mother Alive chemo for sinus cavity lymphoma Sister 1 Alive Sister 2 Social History Tobacco Use Types Packs/Day Years [...] not to disclose 2021 2:56 PM EST Last Filed Vital Signs Vital Sign Reading Time Taken Comments Blood Pressure 108/61 02/14/2021 2:29 PM EST Pulse 69 02/14/2021 2:29 PM EST Temperature 36.4 ??C (97.5 ??F) 02/14/2021 8:19 AM ES T Respiratory Rate 15 02/14/2021 2:29 PM EST Oxygen Saturation 98% 02/14/2021 11:32 AM EST Inhaled Oxygen Concentration - - Weight 77.1 kg (170 lb) 02/14/2021 8:19 AM EST Height 167.6 cm (5' 6 ) 02/14/2021 8:19 AM EST Body Mass Index 27.44 02/14/2021 8:19 AM EST Plan of Treatment Health Maintenance Due Date Last Done Comments Cervical Cancer Screening 1958 Cologuard 1958 Colon Cancer Screening 1958 Colonoscopy 1958 FOBT / Fit Test 1958 HIV Screening 1958 HPV and Pap Smear 1958 Hepatitis C Screening 1958 Pap Smear 1958 Sigmoidoscopy 1958 DTaP,Tdap,and Td Vaccines (1 - Tdap) 1980 Mammogram 1998 Osteoporosis Screening 2008 Pneumococcal Vaccine: 50+ Years (1 of 1 - PCV) 2008 Zoster Vaccines (1 of 2) 2008 COVID-19 Vaccine (2023- season) 2023 12/10/2022, 12/06/2021, 08/14/2021, Additional history exists Alcohol/Substance Use Screening 02/19/2024 Depression Screening and Follow-Up 02/19/2024 Health Care Proxy Review 02/19/2024 Social Drivers of Health Annual Screening 02/19/2024 RSV Vaccine (60+ years old and patients) (1 - 1-dose 75+ series) 2033 Influenza Vaccine Completed 12/05/2023, , 12/06/2021, Additional history exists Hepatitis B Vaccines Aged Out No long er eligible based on patient's age to complete this topic Medical Devices Implanted Type Area Psychiatric Orderly Device Identifier Shelf Expiration Date Model / Serial / Lot Stent Cerebral Micro Delivery [id number] Neuroform Ez - [id number] Implanted:Qty: 1 on 11/17/2019 at [facility] Implant SHANA [id number] 11/23/2021 [id number] / / [id number] Device Closure Vascular Plug 6fr Angio-Seal Vip - [id number] Implanted:Qty: 1 on 11/17/2019 at [facility] Implant [employer] 08/17/2020 [id number] / / [id number] Device Closure Vascular Plug 6fr Angio-Seal Vip - [id number] Implanted:Qty: 1 on 01/21/2020 at [facility] Implant [employer] 10/18/2020 [id number] / / [id number] Surpass Evolve [id number] - Pmas - [id number] Implanted:Qty: 1 on 11/17/2019 at [facility] Stent SHANA 06/09/2022 [id number] / [id number] Coil Pipeline Flex Embolization Device 4mm X 12mm - [id number] Implanted:Qty: 1 on 01/21/2020 at [facility] Stent [employer] 09/29/2022 PED-400 -12 / / [id number] Procedures * Due to [place] law, this organization might not be sharing negative HIV tests. Procedure Name Priority Date/Time Associated Diagnosis Comments CT ANGIOGRAM HEAD AND NECK W CONTRAST Routine 04/11/2024 9:03 AM EST Brain aneurysm from Last 3 Months Results * Due to [place] law, this organization might not be sharing negative HIV tests. * CT Angiogram Head & Neck with Contrast (04/11/2024 9:03 AM EST) Anatomical Region Laterality Modality Head and Neck Computed Tomogra phy 04/11/2024 10:1 1 AM EST Impressions 04/14/2024 3:44 PM EST 1. ??Status post bilateral paraclinoid ICA flow diverting stent placement. Suboptimal evaluation for stent patency given the streak artifact. Previously known aneurysms involving the origin of bilateral posterior communicating arteries and left anterior choroidal artery are not visualized on the current study. 2. ??No hemodynamically significant stenosis, aneurysm, or dissection of the major cervical and intracranial vasculature. 3. ??Interval increased size of bilateral heterogeneous thyroid nodules measuring up to 3.4 cm in the right and 2.3 cm left. Recommend further evaluation with thyroid ultrasound. I, Savana Jenkins, have reviewed the examination and concur with the findings as reported or so edited. Trainee: ??Otilia Kearns If this radiology report contains a blank impression section, it is an incomplete radiology report. ??Please contact the interpreting radiologist or applicable radiology division as soon as possible to obtain the completed interpretation. ? Workstation ID: [id number] Up-to-date CT equipment and radiation dose reduction techniques were employed. CTDIvol: 3.0 - 14.8 mGy. DLP: 613 mGy-cm. Narrative 04/14/2024 3:44 PM EST EXAMINATION: CT of head without contrast CTA of head and neck with contrast TECHNIQUE: CT of head without contrast administration. ??Multiplanar reformats created. CT angiogram of head and neck following intravenous administration of standard dose of Omnipaque. 3-D maximum intensity projection and volume rendered images were created. Degree of stenosis estimated using NASCET criteria. Carotid stenosis Reference: Mild = <50% stenosis. Moderate = 50-69% stenosis. Severe = 70-89% stenosis. Hairline/critical = 90-99% stenosis. Occluded = 100% stenosis. CLINICAL INFORMATION: Carotid artery aneurysm, cerebral aneurysm COMPARISON: CT angiogram head and neck 01/19/2022 IR neuro angiography 02/06/2021, 08/07/2020, 10/22/2019 MRA brain 08/24/2019 FINDINGS: HEAD: Status post bilateral paraclinoid ICA diverting stent placement. Evaluation for patency of a stent is limited given the streak artifact from the hardware. The previously known aneurysms involving the origins of bilateral posterior communicating arteries and left anterior choroidal artery are not well-visualized on the current study. Normal enhancement of the middle cerebral arteries. Symmetric enhancement of the distal cortical branches of the middle cerebral arteries. Normal enhancement of the anterior cerebral arteries. Normal enhancement of bilateral posterior cerebral arteries. Normal enhancement of the cervical segments of the vertebral arteries and the basilar artery. No basilar tip aneurysm. Posterior communicating arteries are hypoplastic bilaterally. Vertebral arteries are codominant. The visualized dural venous sinuses are patent. 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 The origin of the great vessels and the brachiocephalic bifurcation are unremarkable. Normal enhancement of the cervical carotid vasculature. Origin the vertebral arteries are unremarkable. Normal enhancement of the cervical segments of the vertebral arteries. OTHER: Interval increase in size of the bilateral heterogeneous thyroid nodules measuring up to 3.3 cm on the right (previously 2.8 cm) and 2.3 cm on the left (previously 1.6 cm). No significant cervical lymphadenopathy. The prevertebral and paravertebral soft tissues are unremarkable. The visualized osseous structures are unremarkable. The partially visualized lung apices are clear. Resulting Agency Comment [id number] Procedure Note Savana Jenkins MD - 04/14/2024 EXAMINATION: CT of head without contrast CTA of head and neck with contrast TECHNIQUE: CT of head without contrast administration. Multiplanar reformatscreated. CT angiogram of head and neck following intravenous administration ofstandard dose of Omnipaque. 3-D maximum intensity projection and volumerendered images were created. Degree of stenosis estimated using NASCET criteria. Carotid stenosis Reference: Mild = <50% stenosis. Moderate = 50-69% stenosis. Severe = 70-89% stenosis. Hairline/critical = 90-99% stenosis. Occluded = 100% stenosis. CLINICAL INFORMATION: Carotid artery aneurysm, cerebral aneurysm COMPARISON: CT angiogram head and neck 01/19/2022 IR neuro angiography 02/06/2021, 08/07/2020, 10/22/2019 MRA brain 08/24/2019 FINDINGS: HEAD: Status post bilateral paraclinoid ICA diverting stent placement.Evaluation for patency of a stent is limited given the streak artifactfrom the hardware. The previously known aneurysms involving the origins ofbilateral posterior communicating arteries and left anterior choroidalartery are not well-visualized on the current study. Normal enhancement of the middle cerebral arteries. Symmetric enhancementof the distal cortical branches of the middle cerebral arteries. Normalenhancement of the anterior cerebral arteries. Normal enhancement of bilateral posterior cerebral arteries. Normalenhancement of the cervical segments of the vertebral arteries and thebasilar artery. No basilar tip aneurysm. Posterior communicating arteriesare hypoplastic bilaterally. Vertebral arteries are codominant. The visualized dural venous sinuses are patent. 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 The origin of the greatvessels and the brachiocephalic bifurcation are unremarkable. Normal enhancement of the cervical carotid vasculature. Origin the vertebral arteries are unremarkable. Normal enhancement of thecervical segments of the vertebral arteries. OTHER: Interval increase in size of the bilateral heterogeneous thyroid nodulesmeasuring up to 3.3 cm on the right (previously 2.8 cm) and 2.3 cm on theleft (previously 1.6 cm). No significant cervical lymphadenopathy. Theprevertebral and paravertebral soft tissues are unremarkable. Thevisualized osseous structures are unremarkable. The partially visualizedlung apices are clear. IMPRESSION: 1. Status post bilateral paraclinoid ICA flow diverting stent placement.Suboptimal evaluation for stent patency given the streak artifact.Previously known aneurysms involving the origin of bilateral posteriorcommunicating arteries and left anterior choroidal artery are notvisualized on the current study. 2. No hemodynamically significant stenosis, aneurysm, or dissection ofthe major cervical and intracranial vasculature. 3. Interval increased size of bilateral heterogeneous thyroid nodulesmeasuring up to 3.4 cm in the right and 2.3 cm left. Recommend furtherevaluation with thyroid ultrasound. ISavana, have reviewed the examination and concur with thefindings as reported or so edited. Trainee: Otilia Kearns If this radiology report contains a blank impression section, it is anincomplete radiology report. Please contact the interpreting radiologistor applicable radiology division as soon as possible to obtain thecompleted interpretation. Workstation ID: [id number] Up-to-date CT equipment and radiation dose reduction techniques wereemployed. CTDIvol: 3.0 - 14.8 mGy. DLP: 613 mGy-cm. Arabella Pressley NP IMG CT PROCEDURES Gayla l Result from Last 3 Months Insurance [employer] Advance Directives * Full Code (Latest Code Status on File) Date Activated Date Inactivated Comments 01/21/2020 1:57 PM 01/22/2020 2:08 PM Healthcare Agents on File Name Relationship Healthcare Agent Relationshi p Communication Christianne Roy Friend Alternate Health Care Agent Care Teams Charge Machine Operator Relationship Specialty Start Date End Date Fatmata Stiles [address] [place] [address] PCP - General Internal Medicine 09/18/19
--- OUTSIDE RECORDS SUMMARY | 2024-05-20 17:37 | XMS_ITS | Encounter Summary ---
Author Organization [facility] Address [address] [place] [address] Care Team Providers Care Clerical Office Name Role Phone Fatmata Stiles Primary Care Provider [phone] Encounter Details Date Type Department Care Team (Late st Contact Info) Description 12/04/2021 Orders Only [facility] 2 Rad ACT 1 [address] [place] [address] Sylvia Ornelas MD [address] [place] [address] Social History Tobacco Use Types Packs/Day Years [...] on filedocumented in this encounter Care Teams Clerical Office Relationship Specialty Start Date End Date Fatmata Stiles [address] [place] [address] PCP - General Internal Medicine 09/18/19 documented as of this encounter
--- OUTSIDE RECORDS SUMMARY | 2024-05-20 17:37 | XMS_ITS | Encounter Summary ---
Author Organization [facility] Address [address] [place] [address] Care Team Providers Care Distributor Publications Name Role Phone Fatmata Stiles Primary Care Provider [phone] Encounter Details Date Type Department Care Team (Late st Contact Info) Description 07/20/2020 Telephone [facility] Interventional Radiology [address] [place] [id number] Laine Cruz RN [facility] [place], [place] Social History Tobacco Use Types Packs/Day Years [...] PM EST documented as of this encounter Miscellaneous Notes * Telephone Encounter - Laine Cruz RN - 07/20/2020 3:45 PM EDT 24 Hour Preprocedural COVID Screening Call - Negative result I have reviewed the patient's chart and confirmed a negative COVID-19 test result. The patient can move forward with their scheduled procedure. I advised the patient to wash their hands often, cover their coughs and sneezes, avoid sharing personal household items, and to clean all high touch surfaces every day. I reviewed with the patient the need for social distancing to prevent the spread of COVID-19. I advised the patient to continue to monitor for any symptoms of COVID including fever, cough and/or shortness of breath. The patient voiced understanding of this information and agrees with the plan. Laine Cruz RN documented in this encounter Plan of Treatment Not on file documented as of this encounter Visit Diagnoses Not on filedocumented in this encounter Care Teams Distributor Publications Relationship Specialty Start Date End Date Fatmata Stiles [address] [place] [address] PCP - General Internal Medicine 09/18/19 documented as of this encounter
--- OUTSIDE RECORDS SUMMARY | 2024-05-20 17:37 | XMS_ITS | Encounter Summary ---
Author Organization [facility] Address [address] [place] [address] Care Team Providers Care Calender Let Off Operator Name Role Phone Fatmata Stiles Primary Care Provider [phone] Encounter Details Date Type Department Care Team (Late st Contact Info) Description 04/16/2024 Results Follow-Up [facility] Neuro Interventional Radiology [address] [place], [place] [phone] Janusz Reilly PA [address] [place], [place] [phone] Social History Tobacco Use Types Packs/Day Years [...] on filedocumented in this encounter Care Teams Calender Let Off Operator Relationship Specialty Start Date End Date Fatmata Stiles [address] [place] [address] PCP - General Internal Medicine 09/18/19 documented as of this encounter
--- OUTSIDE RECORDS SUMMARY | 2024-05-20 17:37 | XMS_ITS | Encounter Summary ---
Author Organization [facility] Address [address] [place] [address] Care Team Providers Care Technical Planner Name Role Phone Fatmata Stiles Primary Care Provider [phone] Encounter Details Date Type Department Care Team (Late st Contact Info) Description 02/01/2022 Orders Only [facility] Interventional Radiology [address] [place] [address] [phone] Bo Padilla MD [address] [place] [address] [phone] Social History Tobacco Use Types Packs/Day Years [...] on filedocumented in this encounter Care Teams Technical Planner Relationship Specialty Start Date End Date Fatmata Stiles [address] [place] [address] PCP - General Internal Medicine 09/18/19 documented as of this encounter
--- OUTSIDE RECORDS SUMMARY | 2024-05-20 17:37 | XMS_ITS | Referral Summary ---
Author Organization [facility] Address [address] [place] [address] Care Team Providers Care Material Specialist Name Role Phone Fatmata Stiles Primary Care Provider [phone] Encounters Date Type Department Care Team Description 04/22/2024 10:30 AM EST - 04/22/2024 11:59 PM EST Hospital Encounter [facility] Interventional Radiology [address] [place] [address] Piotr nAdino MD Brain aneurysm Discharge Disposition: Home or Self Care () 04/17/2024 Telephone [facility] Interventional Radiology [address] [place] [address] Lorna Zelaya PCA 04/16/2024 Telephone [facility] Neuro Interventional Radiology [address] [place] [address] Fawn Wilkins I 04/16/2024 Results Follow-Up [facility] Neuro Interventional Radiology [address] [place] [address] Janusz Reilly PA 04/11/2024 8:26 AM EST - 04/11/2024 11:59 PM EST Hospital Encounter [facility] CT Scan [address] [place] [address] Brain aneurysm Discharge Disposition: Home or Self Care () 02/21/2024 Orders Only [facility] Neuro Interventional Radiology [address] [place] [address] Arabella Pressley NP Brain aneurysm (Primary Dx) from Last 3 Months Allergies No known active allergies Medications cranberry [...] thyroiditis Cataracts, bilateral 01/21/2020 Brain aneurysm 11/17/2019 Social History Tobacco Use Types Packs/Day Years [...] 02/14/2021 8:19 AM EST Plan of Treatment Not on file Medical Devices Implanted Type Area Refrigeration System Installer Device Identifier Shelf Expiration Date Model / Serial / Lot Stent Cerebral Micro Delivery [id number] Neuroform Ez - [id number] Implanted:Qty: 1 on 11/17/2019 at [facility] Implant SHANA [id number] 11/23/2021 [id number] / / [id number] Device Closure Vascular Plug 6fr Angio-Seal Vip - [id number] Implanted:Qty: 1 on 11/17/2019 at [facility] Implant [employer] 08/17/2020 [id number] / / [id number] Device Closure Vascular Plug 6fr Angio-Seal Vip - [id number] Implanted:Qty: 1 on 01/21/2020 at [facility] Implant [employer] 10/18/2020 [id number] / / [id number] Surpass Evolve [id number] - Pmas - [id number] Implanted:Qty: 1 on 11/17/2019 at [facility] Stent [employer]NA 06/09/2022 [id number] 2 / [id number] Coil Pipeline Flex Embolization Device 4mm X 12mm - [id number] Implanted:Qty: 1 on 01/21/2020 at [facility] Stent [employer] 09/29/2022 PED-400 -12 / / [id number] Procedures * Due to [place] [employer] law, this organization might not be sharing negative HIV tests. Procedure Name Priority Date/Time Associated Diagnosis Comments CT ANGIOGRAM HEAD AND NECK W CONTRAST Routine 04/11/2024 9:03 AM EST Brain aneurysm from Last 3 Months Results * Due to [place] state law, this organization might not be sharing [...] obtain the completed interpretation. ? Workstation ID: [id number] Up-to-date CT equipment and radiation dose reduction [...] lung apices are clear. Resulting Agency Comment [id number] Procedure Note Savana Jenkins MD - 04/14/2024 [...] possible to obtain thecompleted interpretation. Workstation ID: [id number] Up-to-date CT equipment and radiation dose reduction techniques wereemployed. CTDIvol: 3.0 - 14.8 mGy. DLP: 613 mGy-cm. Arabella Pressley [facility] IMG CT PROCEDURES Gayla l Result from Last 3 Months Insurance [facility] Advance Directives * Full Code (Latest Code Status on File) Date Activated Date Inactivated Comments 01/21/2020 1:57 PM 01/22/2020 2:08 PM Healthcare Agents on File Name Relationship Healthcare Agent [facility] Communication Shital Bowens Antoine Friend Alternate Health Care Agent Care Teams Material Specialist Relationship Specialty Start Date End Date Go Fatmata [address] [place], [place] [phone] PCP - General Internal Medicine 09/18/19
--- OUTSIDE RECORDS SUMMARY | 2024-05-20 17:37 | XMS_ITS | Encounter Summary ---
Author Organization [facility] Address [address] [place] [address] Care Team Providers Care Sr. Strategic Sourcing Manager Name Role Phone Fatmata Stiles Primary Care Provider [phone] Encounter Details Date Type Department Care Team (Late st Contact Info) Description 07/12/2020 [facility] Neuro Interventional Radiology [address] [place] [address] Stephany Rivero PA [address] [place] [address] Social History Tobacco Use Types Packs/Day Years [...] on filedocumented in this encounter Care Teams Sr. Strategic Sourcing Manager Relationship Specialty Start Date End Date Fatmata Stiles [address] [place] [address] PCP - General Internal Medicine 09/18/19 documented as of this encounter
== END 2024-05-20 15:12 | disposition home or self-care (01) ==
LOC: HO.US 15:11
PROVIDERS: PCP Internal Medicine; Visit Provider Internal Medicine
DX: E06.3 Autoimmune thyroiditis (principal)
CPT/HCPCS: 76536

== ENCOUNTER → 2024-05-20 15:14 | Outpatient (BNV) | payer OTHER, SELFPAY | PROVIDERS: PCP Internal Medicine; Visit Provider Radiology Diagnostic Radiology | DX: E04.2 Nontoxic multinodular goiter (principal) | CPT/HCPCS: 76536 ==

== ENCOUNTER 2024-07-15 08:03 | Outpatient (REF) | payer OTHER, SELFPAY ==
--- OUTSIDE RECORDS SUMMARY | 2024-07-15 08:10 | XMS_ITS | Encounter Summary ---
Author Organization [facility] Address [address] [place] [address] Care Team Providers Care Payroll Processor Name Role Phone Fatmata Stiles Primary Care Provider [phone] Encounter Details Date Type Department Care Team (Late st Contact Info) Description 07/20/2020 Telephone [facility] Interventional Radiology [address] [place] [phone] Laine Cruz RN [facility] FREELANCE INTERPRETER/TRANSLATOR [place], [place] Social History Tobacco Use Types Packs/Day [...] on filedocumented in this encounter Care Teams Payroll Processor Relationship Specialty Start Date End Date Fatmata Stiles [address] [place] [address] PCP - General Internal Medicine 09/18/19 documented as of this encounter
[2024-07-15 10:18] LABS: MANUAL DIFF FLAG NO
[2024-07-15 10:25] LABS: Basophils Absolute Auto 0.1 X10*3/uL (0.0-0.2); Basophils Percent Auto 1.6 % (0-2); Eosinophils Absolute Auto 0.2 X10*3/uL (0.0-0.4); Hematocrit 35.8 % (37.0-47.0); Hemoglobin 12.1 g/dl (12.0-16.0); Imm Gran Abs Auto 0.01 X10*3/uL (0.00-0.03); Imm Gran Pct Auto 0.3 % (0.0-0.4); Lymphocytes Absolute Auto 1.3 X10*3/uL (1.2-4.9); Lymphocytes Percent Auto 35.7 % (20-40); Mean Corpuscular HGB Conc 33.8 g/dl (31.0-35.0); Mean Corpuscular Hemoglobin 32.4 pg (27.0-33.0); Mean Platelet Volume 9.4 fL (9.4-12.3); Monocytes Absolute Auto 0.3 X10*3/uL (0.1-1.2); Monocytes Percent Auto 8.3 % (2-11); Neutrophils Absolute Auto 1.9 x10*3/uL (2.0-8.3); Neutrophils Percent Auto 50.1 % (45-73); Platelet Count 209 X10*3/uL (160-400); Red Blood Count 3.73 X10*6/uL (4.20-5.50); Red Cell Distribution Width 12.9 % (11.0-16.0); White Blood Count 3.7 X10*3/uL (4.8-10.8)
[2024-07-15 11:02] LABS: Alanine Aminotransferase 26 U/L (0-31); Albumin Level 4.2 g/dL (3.5-5.0); Alkaline Phosphatase 33 U/L (39-117); Anion Gap 9 (12-20); Aspartate Amino Transferase 27 U/L (5-31); Bilirubin Total 0.5 mg/dL (0.0-1.0); Blood Urea Nitrogen 18 mg/dL (9-16); Calcium 9.3 mg/dL (8.4-10.2); Carbon Dioxide 26 mmol/L (22-29); Chloride 109 mmol/L (96-108); Cholesterol 189 mg/dL (<200); Estimated Glomerular Filt Rate > 60; Glucose Fasting 100 mg/dL (60-99); HDL Cholesterol 67 mg/dL (>40); LDL Cholesterol Calculated 112 mg/dL (<100); Potassium 4.3 mmol/L (3.3-5.1); Sodium 140 mmol/L (135-145); Total Protein 6.6 g/dL (6.5-8.0); Triglycerides 54 mg/dL (<150)
[2024-07-15 11:05] LABS: TSH reflex Free T4 1.14 uIU/mL (0.32-4.0); Vitamin D 25-OH Total 59.3 ng/mL (>30)
[2024-07-15 14:10] LABS: Appearance Urine Clear; Color Urine Yellow; Glucose Urine UA Negative (Negative); Leukocyte Esterase Urine Trace (Negative); Nitrite Urine Negative (Negative); Specific Gravity - Urine <= 1.005 (1.005-1.025); UMIC TRIGGER UA YES; Urine Blood Negative (Negative); Urine Ketones Negative (Negative); Urine Protein Negative (Neg-Trace)
[2024-07-15 14:39] LABS: Bacteria Urine None Seen (None Seen); Hyaline Casts Urine 0-2 /LPF (0-2); RBC Urine 0-2 /HPF (0-2); Squamous Epithelial Cell Urine 0-2 /HPF (0-2); WBC Urine 0-5 /HPF (0-5)
== END 2024-07-15 08:04 | disposition home or self-care (01) ==
LOC: HO.HMGCLDS 08:03
PROVIDERS: PCP Internal Medicine; Visit Provider Internal Medicine
DX: Z00.00 Encounter for general adult medical examination without abnormal findings (principal); M85.80 Other specified disorders of bone density and structure, unspecified site; E78.5 Hyperlipidemia, unspecified; E06.3 Autoimmune thyroiditis; D64.9 Anemia, unspecified
CPT/HCPCS: 36415; 80053; 80061; 81001; 82306; 84443; 85025

== ENCOUNTER 2024-07-24 08:54 | Outpatient (AMB) | payer OTHER, SELFPAY ==
--- OUTSIDE RECORDS SUMMARY | 2024-07-24 09:12 | XMS_ITS | Encounter Summary ---
Author Organization [facility] Address [address] [place] [address] Care Team Providers Care Ingot Caster Name Role Phone Fatmata Stiles Primary Care Provider Encounter Details Date Type Department Care Team (Late st Contact Info) Description 07/20/2020 Telephone [facility] Interventional Radiology [address] [place] [id number] Laine Cruz RN [facility] [employer], [place] Social History Tobacco Use Types Packs/Day [...] on filedocumented in this encounter Care Teams Ingot Caster Relationship Specialty Start Date End Date Fatmata Stiles [address] [place] [address] PCP - General Internal Medicine 09/18/19 documented as of this encounter
[2024-07-24 09:17] VITALS: BP 118/80; PULSE 68; RESP 18; TEMP 36.8; O2SAT 96; BMI 30.4
--- NOTE | 2024-07-24 09:17 | A.OFFPC_ITS ---
Vital Signs 07/24/24 09:17 Height 5 ft 6.5 in Weight 191 lb BMI 30.4 BP 118/80 Blood Pressure Location Lt brachial Position Sitting Respiration 18 Pulse 68 Pulse Source Pulse Oximeter Temp 98.2 F Temp Source Oral Pulse Oximetry (%) 96 Oxygen Delivery Method Room Air Intake Visit Reasons: PE Intake Note: Pt is here today for PE. Allergies No Known Allergies Allergy (Verified 07/24/24 09:29) Medication List - Last Reconciled 07/24/24 by Fatmata Stiles MD alendronate (Fosamax) 70 mg PO QWEEK aspirin 81 mg PO DAILY edcdshi-derisg-aicthp-glycosam 300 mg calcium- 1,700 mg/scoop sc PO cholecalciferol (vitamin D3) 50 mcg PO DAILY cranberry extract 200 mg PO DAILY multivit with min-folic acid 200 mcg (One-A-Day Vitacraves Immunity) tabs PO pravastatin 40 mg PO DAILY Tobacco use date assessed: 07/24/24 Fall risk assessment: No Falls in past year Last assessed Fall Risk: 07/24/24 Dental Screening Dental Screen Date: 07/24/24 Did you have a dental visit in the last 12 months?: Yes Did you have a dental problem in the last 6 months where you did not have access to dental care?: No Was dental information given to patient?: Patient has dentist HPI PE HPI Details Pt presents for PE, She is going for safari in September. [facility] Medical History (Updated 07/24/24 @ 10:42 by Fatmata Stiles MD) Multinodular goiter Elevated LFTs Annual physical exam Aneurysm Hyperlipidemia Osteopenia Jr's thyroiditis Surgical History H/O colonoscopy No pertinent past surgical history Family History Father Cancer Mother HTN (hypertension) Afib Social History Housing: House Alcohol intake: current Alcohol intake frequency: a few times a month Patient Tobacco Use Status: Former Tobacco user Tobacco use type: Cigarette Years Smoked: 2 years e-Cigarette/Vaping Use: Never Used service: No Current occupational status: retired Cognitive needs: No Hearing needs: No Vision needs: Yes Questionnaire PHQ-9 Over the last 2 weeks, how often have you been bothered by any of the following problems? 1. Little interest or pleasure in doing things: not at all 2. Feeling down, depressed, or hopeless: not at all 3. Trouble falling or staying asleep, or sleeping too much: not at all 4. Feeling tired or having little energy: not at all 5. Poor appetite or overeating: not at all 6. Feeling bad about yourself - or that you are a failure or have let yourself or your family down: not at all 7. Trouble concentrating on things, such as reading the newspaper or watching television: not at all 8. Moving or speaking so slowly that other people could have noticed. Or the opposite - being so fidgety or restless that you have been moving around a lot more than usual: not at all 9. Thoughts that you would be better off or of hurting yourself in some way: not at all Total score: 0 Depression Screening Interpretation: Negative Depression Screening Done: Yes 54271 - PHQ-9 Billing: Yes Source: Developed by Drs. Brock Christianson, Eliz Stephenson, Grayson Rosario and colleagues, with an educational ivon from [employer]. Thrive Questionnaire Date Thrive assessed: 07/24/24 I am a: Patient What is your living situation today?: I have a steady place to live Within the past 12 months, did the food you bought not last and you didn't have the money to get more?: Never true Within the past 12 months, did you worry whether your food would run out before you got money to buy more?: Never true Do you have trouble paying for medicines?: No Do you have trouble getting transportation to medical appointments?: No Do you have trouble paying your heating and electricity bill?: No Do you have trouble taking care of your child, family member or friend?: No Do you have trouble with day-to-day activities such as bathing, preparing meals, shopping, managing finances, etc.?: No Are you currently unemployed and looking for a job?: No Are you interested in more education?: No Please select the resources that you would like help with: None THRIVE Score: 0 AUDIT C Alcohol Use Questionnaire (AUDIT-C) 1. How often do you have a drink containing alcohol?: Monthly or less 2. How many drinks containing alcohol do you have on a typical day when you are drinking?: 1 or 2 3. How often do you have six or more drinks on one occasion?: Never Total Score: 1 EUGENE-7 AMB Questionnaire EUGENE-7 Date EUGENE - 7 assessed: 07/24/24 Feeling nervous, anxious, or on edge: 0 = Not at all Not being able to stop or control worryin = Not at all Worrying too much about different things: 0 = Not at all Trouble relaxin = Not at all Being so restless that it is hard to sit still: 0 = Not at all Becoming easily annoyed or irritable: 0 = Not at all Feeling afraid as if something awful might happen: 0 = Not at all Total EUGENE-7 score (0-4 normal; 5-9 mild; 10-14 moderate; 15-21 severe): 0 Source: Developed by Drs. Brock Christianson, Eliz Stephenson, Grayson Rosario and colleagues, with an educational ivon from [employer]. EUGENE-7 Assessment Billing EUGENE-7 Assessment Tool: EUGENE-7 Assessment 24087 Review of Systems Const All systems reviewed & are unremarkable except as noted in HPI and below Reports no additional complaints Eyes Reports no additional complaints ENT Reports no additional complaints Card Reports no additional complaints Resp Reports no additional complaints GI Reports no additional complaints Reports no additional complaints Physical exam (Primary Care) Vital Signs: Last Vital Signs Temp 98.2 F 07/24/24 09:17 Pulse 68 07/24/24 09:17 Resp 18 07/24/24 09:17 BP 118/80 07/24/24 09:17 Pulse Ox 96 07/24/24 09:17 Oxygen Delivery Method Room Air 07/24/24 09:17 BMI result Body Mass Index 30.4 Tobacco/Smoking Status: Tobacco use Status Tobacco use date assessed 07/24/24 07/24/24 09:29 Patient Tobacco Use Status Former Tobacco user 07/24/24 09:17 Tobacco use type Cigarette 07/24/24 09:17 e-Cigarette/Vaping Use Never Used 07/24/24 09:17 PHQ-9: PHQ-9 Score PHQ-9: Total score 0 07/24/24 09:59 Depression Screening Interpretation: Negative Thrive Assessment: Date of Thrive Assessment Date Thrive assessed 07/24/24 07/24/24 09:17 Const General: no acute distress HENMT Head: Yes normal to inspection Ears: hearing grossly normal bilaterally Face and sinus: Yes normal facial exam Mouth: Normal oral and palatal mucosa present Throat: Yes posterior oropharynx normal Eyes General: appearance normal, both eyes and all related structures Neck Neck: Yes no lymphadenopathy and Yes supple Resp Effort & Inspection: normal respiratory effort Auscultation: clear to auscultation bilaterally Cardio Rhythm: regular rhythm Heart sounds: S1 normal heart sound present and S2 normal heart sound present GI Inspection: Yes normal to inspection Palpation (GI): Soft to palpation Percussion: Yes normal to percussion Auscultation: normal bowel sounds Immunizations pneumoc 20-jordan conj-dip cr(PF) 0.5 mL IM syringe Performing Provider: Fatmata Stiles MD Performing Location: [facility] Administered by: JENNY Maurer on 07/24/24 10:13 Dose Route Admin Location Dispensed Lot Number Expiration Date NDC Supplemental Nurse 0.5 mL IM Left Deltoid 0.5 mL [id number] 07/24/24 1288-7497-32 [employer] VIS Given Date VIS Provided VIS Publication Date 07/24/24 Single Vaccine 21 Eligibility Eligibility Date Funding Source Not [facility] Eligible 07/24/24 Private Coding Level of Care Code Est Pt Prev Care >65y(36613) Diagnoses Aneurysm I72.9 Hyperlipidemia E78.5 Osteoporosis M81.0 Annual physical exam Z00.00 Additional Codes EUGENE-7 Assessment Billing - EUGENE-7 Assessment Tool: EUGENE-7 Assessment 00881 ([id number]) PHQ-9 - 00148 - PHQ-9 Billing: Yes ([id number]) Assessment & Plan Assessment & Plan (1) Aneurysm: Comment: multiple cerebral aneurysms :R ICA 1 stent 01/2020, L ICA 2 stents 10/2019, placed by Dr. Sina Quinones [facility] f/u , annual CTA at [facility], Code(s): I72.9 - Aneurysm of unspecified site Category: Medical Plan: Follow-up with [facility] (2) Hyperlipidemia: Code(s): E78.5 - Hyperlipidemia, unspecified Category: Medical Plan: Continue pravastatin (3) Osteoporosis: Comment: DEXA 09/10, T-score -2.6 femoral neck and L spine, started Fosamax 08/2023 Code(s): M81.0 - Age-related osteoporosis without current pathological fracture Category: Medical Plan: Continue Fosamax vitamin-D and weight-bearing exercises (4) Annual physical exam: Code(s): Z00.00 - Encounter for general adult medical examination without abnormal findings Category: Medical Plan: Well-balanced diet regular physical activity discussed with the patient she is up-to-date with the mammogram colonoscopy and Pap smear Orders: Orders Comprehensive Anita. Panel Fast 1 Year D64.9 - Anemia, unspecified, E04.2 - Nontoxic multinodular goiter, E78.5 - Hyperlipidemia, unspecified, Z00.00 - Encounter for general adult medical examination without abnormal findings Lipid Panel 1 Year D64.9 - Anemia, unspecified, E04.2 - Nontoxic multinodular goiter, E78.5 - Hyperlipidemia, unspecified, Z00.00 - Encounter for general adult medical examination without abnormal findings Vitamin D 25-OH Total 1 Year D64.9 - Anemia, unspecified, E04.2 - Nontoxic multinodular goiter, E78.5 - Hyperlipidemia, unspecified, Z00.00 - Encounter for general adult medical examination without abnormal findings TSH reflex Free T4 1 Year D64.9 - Anemia, unspecified, E04.2 - Nontoxic multinodular goiter, E78.5 - Hyperlipidemia, unspecified, Z00.00 - Encounter for general adult medical examination without abnormal findings Pneumococcal 20 Immunization Today Z23 - Encounter for immunization Complete Blood Count Auto Diff 1 Year D64.9 - Anemia, unspecified, E04.2 - Nontoxic multinodular goiter, E78.5 - Hyperlipidemia, unspecified, Z00.00 - Encounter for general adult medical examination without abnormal findings
== END 2024-07-24 10:31 | disposition home or self-care (01) ==
LOC: HO.HMCC 08:55
PROVIDERS: PCP Internal Medicine; Visit Provider Internal Medicine
DX: I72.9 Aneurysm of unspecified site (principal); E78.5 Hyperlipidemia, unspecified; M81.0 Age-related osteoporosis without current pathological fracture; Z00.00 Encounter for general adult medical examination without abnormal findings; Z23 Encounter for immunization

== ENCOUNTER → 2024-07-24 08:54 | Outpatient (BNVA) | payer OTHER, SELFPAY | PROVIDERS: PCP Internal Medicine; Visit Provider Internal Medicine | DX: Z00.00 Encounter for general adult medical examination without abnormal findings (principal); I72.9 Aneurysm of unspecified site; E78.5 Hyperlipidemia, unspecified; M81.0 Age-related osteoporosis without current pathological fracture; D64.9 Anemia, unspecified; E04.2 Nontoxic multinodular goiter; Z23 Encounter for immunization | CPT/HCPCS: 90471; 90677; 96127 ==